=== PATIENT | female | born 1955 | race Caucasian/White ===

== ENCOUNTER 2018-01-07 13:05 | Outpatient (CLI) | payer BC ==
--- NOTE | 2018-01-07 16:48 | PET ---
PET CT FROM SKULL BASE THROUGH MID THIGHS: INDICATION: History of breast cancer. COMPARISON: Report from a PET CT performed 07/25/06. TECHNIQUE: Multiple PET images were obtained from the skull base through the mid thighs after IV administration of 10.5 mCi F18-FDG IV. CT images were obtained for attenuation correction purposes only. FINDINGS: Biodistribution: The biodistribution appears successful. Head/Neck: There is a 1.5 cm nodule seen posterior to the inferior pole of the right thyroid gland with a peak S UV uptake of 2.74 and mean uptake of 3.51. No additional hypermetabolic lymphadenopathy is evident. Chest: There is prominent pleural thickening involving the left hemithorax with foci of the pleural thickeni ng having hypermetabolic uptake. One is seen adjacent to the left prevascular space measuring 4.2 x 9 .7 cm with a peak SUV uptake of 3.61 and a mean uptake of 2.65. An additional nodular area of focal p leural thickening adjacent to the descending thoracic aorta measuring up to 2.5 cm with a peak SUV up take of 5.26 and mean uptake of 4.69. Diffusely mildly hypermetabolic activity is seen involving the pleural thickening involving the posterior costophrenic angle. There is a hypermetabolic 9.0 mm right retrocrural lymph node with a peak SUV uptake of 2.6 and a justine n uptake of 2.36. Abdomen/Pelvis: No hypermetabolic lymphadenopathy or mass is seen within the abdomen or pelvis. Skin/Osseous Structures: There is a suspected healing pathologic fracture involving the lateral left 10th rib with peak SUV up take of 5.77 and mean uptake of 5.77. An additional sclerotic foci is seen within the lateral left 9t h rib with no associated hypermetabolic activity. Punctate sclerotic foci are seen within L3. There i s an additional sclerotic lesion within the right aspect of T10. IMPRESSION: Abnormal PET CT: 1. There is abnormal hypermetabolic pleural thickening involving the left hemithorax suspicious for pleural based metastatic disease. 2. There is a hypermetabolic right retrocrural lymph node suspicious for malignant lymphadenopathy. 3. There is a hypermetabolic healing fracture involving the lateral left 10th rib suspicious for pat hologic fracture involving a metastatic lesion to the left 10th rib. There is additional sclerotic fo ci within the lateral left 9th rib, as well as within the thoracic and lumbar vertebra without associ ated hypermetabolic activity; however, these are below PET resolution threshold and remain suspicious for osteoblastic metastatic disease. 4. Mildly hypermetabolic nodule involving the posterior aspect of the inferior pole of the right thy roid gland is indeterminate. Recommend thyroid ultrasound for additional characterization. POS: [facility]
== END 2018-01-07 13:06 | disposition home or self-care (01) ==
LOC: PET 13:05
PROVIDERS: ATTEND Internal Medicine Hematology & Oncology
DX: C78.02 Secondary malignant neoplasm of left lung (principal); C50.412 Malignant neoplasm of upper-outer quadrant of left female breast; J92.9 Pleural plaque without asbestos; S22.32XD Fracture of one rib, left side, subsequent encounter for fracture with routine healing; E04.1 Nontoxic single thyroid nodule
CPT/HCPCS: 78815; A9552

== ENCOUNTER 2018-04-22 11:51 | Outpatient (CLI) | payer MEDICARE ==
--- NOTE | 2018-04-22 15:23 | PET ---
NUCLEAR MEDICINE FDG PET CT: (Positron Emission Tomography) DATE: 04/22/2018. HISTORY: A 63-year-old female with breast cancer and lung metastases. [id number] and C78.02. Restaging. COMPARISON: PET scan of 01/07/2018. TECHNIQUE: IV injection F-18 Fluorodeoxyglucose (FDG) dose: 12.1 mCi. PET and attenuation-correction CT performed from skull base to proximal thighs. FINDINGS: SUV (standard uptake value) numbers given are maximum SUV's, and QCLR is used: The solid nodule abutting the right side of the tracheoesophageal groove, and abutting the posterior aspect of the right lobe of the thyroid gland, has not changed in size. SUV 3.0 (previous 3.5). The previous mass at the left edge of the prevascular space of the mediastinum had a transverse dimensio n of 4.2 cm. It had a long tail extending anteriorly, giving the AP dimension 9.7 cm. However, that apparent tail does not appear to be hypermetabolic. When that anterior tail is excluded, the previo us dimensions are 9.7 x 1.7 cm. The current dimensions for this mass are 1.5 x 3 cm. The uptake has significantly increased from previous SUV of 3.6, to current SUV of 7.6. There is a new finding of an osteolytic lesion involving the head of the left 5th rib, with soft tiss ue component extending into the adjacent posteromedial pleural surface, abutting the posterior edge o f the upper descending thoracic aorta. SUV 7.7. There is a posterior pleural-based tiny soft tissue density nodule abutting the posterior aspect of t he apical segment of the left upper lobe, abutting the anterior surface of the posterior aspect of th e left third rib, which was previously approximately 0.8 cm in size. It is stable. Its SUV Is only 1.9. Several rib levels inferior and slightly posterolateral pleural surface nodule was previously approxi mately 1 cm, and is currently 1.3 cm, with current SUV of 3.1 (previously SUV of 1.9). This is consi stent with another pleural metastasis. Much more inferiorly and medially, there was a pleural-based mass at the left lower lobe level, broad ly abutting the posterior aspect of the descending thoracic aorta, which previously measured approxim ately 3 x 2 cm with SUV of 6.5. It currently measures approximately 4.5 x 3 cm, and has SUV of 6.2. This is probably another pleural metastasis. There is now a greater degree of left pleural thickening involving the left base, with small loculate d components of pleural effusion. At the medial posterior base, this region of thickened pleura has SUV of 5.1. It was previously 4.0. There is a focal sclerotic lesion involving the lateral aspect of the left 9th rib without increased uptake. At the lateral aspect of the left 10th rib, there is a metastatic lesion with SUV of 8.9 (previous 7. 0), now with a greater degree of surrounding soft tissue mass component surrounding it that measures approximately 3.5 x 4.5 cm. No evidence of metastatic disease involving the abdominal cavity, pelvic cavity, or neck. Absent left breast. New tiny focus of increased uptake within the bone marrow of left intertrochanteric proximal femur wi th SUV of 10.3 (very difficult to visualize on CT), representing osseous metastatic lesion. New osseous metastatic focus at right iliac wing with SUV of 6.4, difficult to appreciate on CT. New 1.5 x 1 cm osteolytic lesion (with lateral cortical breakthrough) at right ilium just lateral to the upper aspect of the right SI joint with SUV of 15.2. New left posterolateral left 11th rib osseous metastasis with SUV 5.9. New compression fracture of T11 with SUV of 7.5. Uncertain whether this is pathologic fracture or os teoporotic fracture. Pathologic fracture due to metastasis is slightly favored. Left T9 posterior element (transverse process) osteolytic metastasis with SUV of 9.3. New right T9 vertebral body osteolytic metastasis with SUV of 9.3. IMPRESSION: 1. Interval worsening of left hemithoracic pleural metastatic lesions. 2. Interval development of multiple new skeletal metastases. MAXIME Dietrich POS: ZEINA
== END 2018-04-22 11:52 | disposition home or self-care (01) ==
LOC: PET 11:51
PROVIDERS: ATTEND Internal Medicine Hematology & Oncology
DX: C50.919 Malignant neoplasm of unspecified site of unspecified female breast (principal); C78.00 Secondary malignant neoplasm of unspecified lung; C78.2 Secondary malignant neoplasm of pleura; C79.51 Secondary malignant neoplasm of bone
CPT/HCPCS: 78815; A9552

== ENCOUNTER 2018-04-28 09:40 | Outpatient (CLI) | payer MEDICARE ==
[2018-04-28 10:26] LABS: Estimated GFR-MDRD - POC Greater than 90
[2018-04-28] MEDS ORDERED: Gadobenate Dimeglumine 529 MG/1 ML (20ML VIAL) ONE (11:25)
--- NOTE | 2018-04-28 13:20 | MRI ---
PRE AND POST CONTRAST ENHANCED MRI IMAGES OF THE THORACIC SPINE: History: Neoplasm of breast secondary malignancy to left lung. Technique: Multiplanar, multisequence pre and post contrast enhanced MRI images were obtained of the thoracic spine. FINDINGS: Images demonstrate areas of signal abnormality seen in the left superior endplate of the T5 vertebral body. There is more extensive signal abnormality seen in the T9 and T11 vertebral bodies. There is a lso a small central upper and right sided T12 vertebral lesion. In addition, there is a right posteri or T8 vertebral body lesion. There is also associated T9 and T11 compression fractures. Areas of sign al abnormality seen in the T10 vertebral body. There is also a subtle area of signal abnormality seen in the left posterior and inferior aspects of the L1 vertebra. These findings suggest multiple verte bral body lesions compatible with metastatic disease of much of the thoracic spine and L1 vertebral l evels. There is also extensive posterior element abnormalities seen in the thoracic spine involving the left T4 and T5 neural foramen and left T5 pedicle and transverse process. In addition, signal abnormaliti es are also seen in the posterior elements bilaterally of the T9 posterior elements, especially invol ving the left T9 lamina and transverse process extending into the left T9 epidural space. IMPRESSION: Extensive thoracic metastases as described above, involving T4-5 neural foramen, T5 vertebral level, as well as lower thoracic metastatic disease. POS: [facility]
== END 2018-04-28 09:41 | disposition home or self-care (01) ==
LOC: BICMRI 09:40
PROVIDERS: ATTEND Internal Medicine Hematology & Oncology
DX: C79.51 Secondary malignant neoplasm of bone (principal); C50.919 Malignant neoplasm of unspecified site of unspecified female breast
CPT/HCPCS: 72157; 82565; A9579

== ENCOUNTER 2018-07-24 14:15 | Outpatient (CLI) | payer MEDICARE ==
--- NOTE | 2018-07-24 16:11 | MRI ---
MRI THORACIC SPINE WITH AND WITHOUT CONTRAST: 07/24/2018 HISTORY: 63-year-old female with breast cancer metastatic to the bones, including spine, presents with worseni ng of mid and lower back pain. COMPARISON: 04/28/2018 FINDINGS: There is greater number of metastatic enhancing osseous lesions at multiple levels now, and interval growth of some of the lesions. The largest lesions are present at T2, T5, T9, T10, and T11 vertebral bodies. There are also metastatic osseous lesions in the T4 left posterior body and left pedicle, T8 posterior body, T12 right superior body, and spinous processes of T3, T9, T10, and T12. The previousl y demonstrated left paraspinal tumor mass component at T4-5, with involvement of the left T5 transver se process and left T5 rib has become larger. Metastatic pleural based nodules are present within the left thoracic cavity. Mild chronic loss of height of the T9 and T11 vertebral bodies have not signif icantly changed. At T9, there is moderately severe central spinal canal stenosis due to expansile oss eous metastatic involvement of the left pedicle, left lamina, and posterior aspect of vertebral body, all encroaching upon the spinal canal, distorting, and mild-moderately compressing the spinal cord t o a similar degree as previously or perhaps minimally worse. No cord edema. No abnormal intramedullar y enhancement of the cord. No syrinx. No high grade central spinal canal stenosis at any other level. No new compression fracture. IMPRESSION: 1. Significant interval progression of osseous metastatic lesions throughout the thoracic spine, now involving every level of various degrees of severity. 2. Nonacute mild compression deformities of T9 and especially T11, are stable. 3. Moderately severe central spinal canal stenosis with mild chronic cord compression due to met astatic osseous expansion, at T9, is either stable or minimally worse. 4. No other levels of high grade central spinal canal stenosis or cord impingement in the thorac ic spine. POS: [facility]
--- NOTE | 2018-07-24 16:30 | MRI ---
MRI LUMBAR SPINE WITH AND WITHOUT CONTRAST: DATE: 07/24/18 HISTORY: 63-year-old female with breast cancer metastatic to bone. Low back pain. COMPARISON: None. TECHNIQUE: Multiple sequences obtained in axial and sagittal planes, pre and post IV injection of gadolinium-bas ed contrast agent: 16 mL of Multihance. FINDINGS: There are five lumbar type vertebrae. Vertebral body heights are maintained. No high grade central sp inal canal stenosis or high grade neural foraminal stenosis at any level. No abnormal enhancement of lower spinal cord or abnormal intradural enhancement. Cauda equina is arranged in a symmetrical, norm al distribution throughout the thecal sac. There are mild degenerative facet changes at several level s. Mild discogenic degenerative changes at several levels. There are multiple osseous metastatic lesi on throughout the vertebral bodies and posterior elements, at every visualized level. The largest les ion is at L1. No loss of height. No bony retropulsion. No tumor mass in the neural foramina. Metastat ic lesions are also present in the sacrum. There is a nonacute compression fracture of T11, which is described more in the report for the thoracic spine MRI. IMPRESSION: 1. Diffuse osseous skeletal metastatic lesion throughout every lumbar vertebral level. 2. No pathologic compression fracture in the lumbar spine, no nerve root compression, and no hig h grade central or neural foraminal stenosis. MAXIME Dietrich POS: [facility]
== END 2018-07-24 14:16 | disposition home or self-care (01) ==
LOC: MRI 14:15
PROVIDERS: ATTEND Radiology Radiation Oncology
DX: C79.51 Secondary malignant neoplasm of bone (principal); C50.919 Malignant neoplasm of unspecified site of unspecified female breast; M54.5 Low back pain; M48.04 Spinal stenosis, thoracic region
CPT/HCPCS: 72157; 72158

== ENCOUNTER 2018-08-17 15:17 | Inpatient (IN) | payer MEDICARE ==
[~2018-08-17 15:17] MED LIST: Dexamethasone 20 MG/5 ML VIAL ONE; Glycopyrrolate 0.2 MG/ML 5 ML SYRINGE ONE; Lidocaine 1% PF 5 ML VIAL ONE; Ondansetron PF 4 MG/2 ML Vial ONE; PROPOFOL 200 MG/20 ML VIAL ONE; Rocuronium Bromide 10 MG/ML (10ML VIAL) ONE; ePHEDrine 50 MG/ML VIAL ONE
[2018-08-17] MEDS ORDERED: Morphine 4 MG/ML VIAL ONE (16:34)
[2018-08-17 16:42] LABS: #Lymphocytes 0.6 thou/uL (1.20-3.40); #Monocytes 0.1 thou/uL (0.11-0.59); #Neutrophils 2.6 thou/uL (1.40-6.50); %Basophils 0.4 % (0.0-1.0); %Eosinophils 0.8 % (0.0-10.0); %Lymphocytes 18.1 % (21.0-51.0); %Monocytes 2.8 % (0.0-10.0); %Neutrophils 77.8 % (42.0-75.0); Hemoglobin 11.9 g/dL (12.0-16.0); Mean Corpuscular HGB CONC 33.8 g/dL (32.0-36.0); Mean Corpuscular Hemoglobin 35.5 pg (27.0-31.0); Mean Platelet Volume 7.1 fL (7.4-10.4); Platelet Count 283 thou/uL (130-400); RBC Distribution Width 16.7 % (11.5-14.5); Red Blood Cell (RBC) Count 3.35 mill/uL (4.20-5.40); White Blood Cell (WBC) Count 3.3 thou/uL (4.8-10.8)
[2018-08-17 17:04] LABS: ALT (SGPT) 11 U/L (8-55); AST (SGOT) 24 U/L (5-34); Albumin 3.8 g/dL (3.4-4.8); Alkaline Phosphatase 212 U/L (40-150); Anion Gap 10 mmol/L (10-20); BUN (Urea Nitrogen) 11 mg/dL (9.8-20.1); Bilirubin, Total 0.4 mg/dL (0.2-1.2); Calc. Creatinine Clearance 0 mL/min (70-130); Calcium 8.5 mg/dL (7.8-10.44); Carbon Dioxide 28 mmol/L (23-31); Chloride 104 mmol/L (98-107); Estimated GFR-MDRD 79; Globulin 2.4 g/dL (2.4-3.5); Glucose 94 mg/dL (80-115); Protein, Total 6.2 g/dL (6.0-8.3); Sodium 138 mmol/L (136-145)
[2018-08-17 17:06] LABS: Anisocytosis SLIGHT = 6-15 cells (100X) (0-5/hpf); MDiff Complete? YES; Macrocytosis SLIGHT = 6-15 cells (100X) (0-5/hpf); Platelet Morphology Comment Appears Adequate; Polychromasia SLIGHT = 2-3 cells (100X) (0-2/hpf)
--- NOTE | 2018-08-17 17:21 | ULT ---
Left lower extremity venous Doppler ultrasound: 08/17/2018 COMPARISON: None HISTORY: Pain and swelling, assess for DVT TECHNIQUE: Multiplanar grayscale sonographic imaging of the venous structures left lower extremity ob tained with color flow and spectral analysis FINDINGS: Left common femoral vein, greater saphenous vein, profunda femoral vein, femoral vein, popl iteal vein, and posterior tibial vein are patent. No evidence for DVT. IMPRESSION: No evidence for deep venous thrombosis of the left lower extremity.
--- NOTE | 2018-08-17 17:45 | RAD ---
Frontal and lateral imaging of left femur: 08/17/2018 COMPARISON: None HISTORY: Pain FINDINGS: A nondisplaced fracture involving the midportion of the left femoral neck is noted. No jonny tional fracture is seen. IMPRESSION: Nondisplaced left femoral neck fracture.
--- NOTE | 2018-08-17 17:45 | RAD ---
2 views left hip: 08/17/2018 COMPARISON: 08/14/2018 HISTORY: Left hip pain FINDINGS: There is a nondisplaced fracture involving the midportion of the left femoral neck. No evid ence for dislocation is seen. IMPRESSION: Nondisplaced left femoral neck fracture.
--- NOTE | 2018-08-17 17:46 | RAD ---
Frontal radiograph pelvis: 08/17/2018 COMPARISON: None HISTORY: Left hip pain FINDINGS: Nondisplaced fracture involving the midportion of the left femoral neck is noted. The pelvi c ring is intact. No widening of the sacroiliac joints or pubic symphysis. Neither hip appears dislocated. IMPRESSION: Nondisplaced fracture involving the midportion of the left femoral neck.
[2018-08-17 18:14] LABS: PTT 24.2 SEC (22.9-36.1); Prothrombin Time 13.3 SEC (12.0-14.7)
[2018-08-17] MEDS ORDERED: Fleet Enema 133 ML BOT PR PRN (19:02)
[2018-08-17] MEDS ORDERED: Bisacodyl 10 MG SUPP PR PRN (19:02)
[2018-08-17] MEDS ORDERED: Ondansetron PF 4 MG/2 ML Vial IVP PRN (19:02)
[2018-08-17] MEDS ORDERED: Fentanyl 100 MCG/2 ML VIAL SLOW IVP PRN (19:02)
[2018-08-17] MEDS ORDERED: traMADol HCl 50 MG TAB PO PRN ×2 (19:02)
[2018-08-17] MEDS ORDERED: Milk Of Magnesia 30 ML UDCUP PO PRN (19:02)
[2018-08-17] MEDS ORDERED: oxyCODONE/Acetaminophen 5 mg/325 mg Tablet PO PRN (19:10)
[2018-08-17] MEDS ORDERED: CEFAZOLIN 2 GM in Premix Bag 1 BAG IVPB SCH (19:15)
[2018-08-17] MEDS ORDERED: Zolpidem Tartrate 5 MG TAB PO PRN (19:16)
--- NOTE | 2018-08-17 19:30 | RAD ---
Portable frontal chest radiograph: 08/17/2018 COMPARISON: None HISTORY: Hip fracture FINDINGS: Nonspecific increased density is noted in the medial left lung base. There is also increase d soft tissue density along the lateral aspect of the mid left lung zone and in the left costophrenic angle. This may be on the basis of an inflammatory/infectious process or may be on the b asis of malignancy. Of note, the patient does have a history of breast cancer with pulmonary metastatic disease. IMPRESSION: Increased density within the left hemithorax, likely related to the patient's history of metastatic breast cancer. No evidence for pulmonary edema.
[2018-08-17 19:48] LABS: #Lymphocytes 0.6 thou/uL (1.20-3.40); #Monocytes 0.2 thou/uL (0.11-0.59); #Neutrophils 2.2 thou/uL (1.40-6.50); %Basophils 1.1 % (0.0-1.0); %Lymphocytes 19.8 % (21.0-51.0); %Monocytes 5.4 % (0.0-10.0); %Neutrophils 72.7 % (42.0-75.0); Hemoglobin 11.6 g/dL (12.0-16.0); Mean Corpuscular HGB CONC 34.2 g/dL (32.0-36.0); Mean Corpuscular Hemoglobin 35.7 pg (27.0-31.0); Mean Platelet Volume 7.3 fL (7.4-10.4); Platelet Count 296 thou/uL (130-400); RBC Distribution Width 16.7 % (11.5-14.5); Red Blood Cell (RBC) Count 3.25 mill/uL (4.20-5.40); White Blood Cell (WBC) Count 3.1 thou/uL (4.8-10.8)
[2018-08-17 19:51] LABS: PTT 23.8 SEC (22.9-36.1); Prothrombin Time 13.5 SEC (12.0-14.7)
[2018-08-17 20:07] LABS: ALT (SGPT) 8 U/L (8-55); AST (SGOT) 21 U/L (5-34); Albumin 3.9 g/dL (3.4-4.8); Alkaline Phosphatase 216 U/L (40-150); Anion Gap 12 mmol/L (10-20); BUN (Urea Nitrogen) 10 mg/dL (9.8-20.1); Bilirubin, Total 0.5 mg/dL (0.2-1.2); Calc. Creatinine Clearance 0 mL/min (70-130); Calcium 8.6 mg/dL (7.8-10.44); Carbon Dioxide 28 mmol/L (23-31); Chloride 104 mmol/L (98-107); Estimated GFR-MDRD Greater than 90; Globulin 2.3 g/dL (2.4-3.5); Glucose 91 mg/dL (80-115); Potassium 3.8 mmol/L (3.5-5.1); Protein, Total 6.2 g/dL (6.0-8.3); Sodium 140 mmol/L (136-145)
[2018-08-17] MEDS: Sodium Chloride 0.9% 1,000 ML IV SCH (21:39)
[2018-08-17] MEDS: Atorvastatin Calcium 40 MG TAB PO SCH (22:18)
[2018-08-17] MEDS: Gabapentin 100 MG CAP PO SCH (22:19)
[2018-08-17] MEDS: Famotidine 20 MG TAB PO SCH (22:19)
[2018-08-17 22:33] VITALS: BMI 31.8
[2018-08-17] MEDS: [UNRECOGNIZED DRUG - OTHER] PO SCH (22:36)
[2018-08-17] MEDS: oxyCODONE/Acetaminophen 5 mg/325 mg Tablet PO PRN (22:36)
--- NOTE | 2018-08-17 23:22 | HP ---
REFERRING PHYSICIAN: Dr. Cabral TRAUMA SURGEON: Dr. Ku. CONSULTING PHYSICIAN: Dr. Lovett. HISTORY OF PRESENT ILLNESS: The patient is a 63-year-old female with a history of metastatic breast cancer with metastasis to the spine. She reported no significant trauma; however, she twisted today and sat on her commode and started having significant left-sided hip pain. She came to the emergency department for evaluation. X-ray imaging demonstrated that she had a left femoral neck fracture. She denied nausea, vomiting, diarrhea, or recent illness. Also, denied numbness or tingling in her left lower extremity. She did have swelling below the area of the injury. She is not taking any anticoagulation. She did not report any fall, did not strike her head or lose consciousness. PAST MEDICAL HISTORY: Stage IV metastatic breast cancer with metastasis to the T-spine, hypertension, hyperlipidemia. PAST SURGICAL HISTORY: Left-sided mastectomy and tubal ligation. SOCIAL HISTORY: She denies tobacco, drug, or alcohol use. She works and drives. She enjoys taking care of her grandchildren. MEDICATIONS: 1. Lisinopril/hydrochlorothiazide 20/25 mg one tablet once a day. 2. Flonase 2 sprays each nostril daily. 3. Ambien 5 mg p.r.n. for insomnia. 4. Robaxin 750 mg t.i.d. p.r.n. 5. Etodolac 500 mg b.i.d. 6. Ibrance 125 mg at night. 7. Gabapentin 100 mg t.i.d. 8. Percocet 10/325 mg q.6 hours p.r.n. for pain. 9. Fentanyl patch 25 mcg transdermal every 3 days for pain. 10. Metoprolol 25 mg once a day. 11. Lipitor 80 mg once a day. 12. Vitamin D one each week. 13. Aspirin 81 mg daily. ALLERGIES: NO KNOWN DRUG ALLERGIES. PHYSICAL EXAMINATION: VITAL SIGNS: Temperature 98.5, pulse 68, respirations 18, oxygen saturation 98 % on room air, blood pressure 128/68. PRIMARY SURVEY: 1. Airway intact. 2. Adequate breath sounds bilaterally. 3. 2+ pulses palpable in the bilateral radials, femorals, and DPs. 4. GCS is 15. Gross motor and sensation intact. 5. No lacerations bruises or external bleeding. SECONDARY SURVEY: 1. Normocephalic. No gross palpable skull deformities or tenderness. 2. EYES: Equal, 3 to 2 equal, round, reactive bilaterally. 3. ENT: No hemotympanum. No epistaxis. No septal hematoma. Midface stable to manipulation. No blood in the oropharynx. Dentition is intact. No anterior neck injury/crepitus/tenderness. 4. C-SPINE: No step-offs or deformities. Nontender. C-collar not in place. 5. CHEST: Nontender. No crepitus. No abrasions or ecchymosis noted. Left- sided mastectomy scar. Equal chest movement. 6. ABDOMEN: Soft, nontender, nondistended. 7. PELVIS: Stable with left-sided tenderness. No abrasions or ecchymosis. 8. RECTAL: Deferred. 9. GENITOURINARY: Deferred. 10. EXTREMITIES: Swelling to the left lower extremity. No abrasions or ecchymosis noted. 2+ pulses in the bilateral radials, femorals, and DPs bilaterally. 11. BACK/SPINE: No step-offs, deformities, or tenderness to palpation of the thoracic or lumbar spine. No abrasions or ecchymosis noted. 12. NEUROLOGIC: 5/5 strength in the bilateral neuroscientist/plantar flexion/ dorsiflexion. Gross normal sensation x4 extremities. LABORATORY FINDINGS: White count 3.3, hemoglobin 11.9, hematocrit 35.2, platelets 283. INR 1.0. Sodium 138, potassium 4.0, chloride 104, carbon dioxide 28, BUN 11, creatinine 0.74, glucose 94. Troponin 0.010. Total bilirubin 0.4, AST 24, ALT 11. DIAGNOSTIC FINDINGS: X-ray of the left femur demonstrates a nondisplaced left femoral neck fracture. X-ray of the left hip demonstrates a nondisplaced left femoral neck fracture. X-ray of the pelvis demonstrates a nondisplaced fracture involving the midportion of the left femoral neck. Ultrasound of the left lower extremity demonstrates no evidence of deep venous thrombosis of the left lower extremity. ASSESSMENT: 1. Left femoral neck fracture, not due to significant trauma. 2. History of stage IV metastatic breast cancer with metastasis to the T-spine, hypertension, and hyperlipidemia. 3. Acute traumatic pain due to left femoral neck fracture. PLAN: The patient will be admitted to the surgical floor. She will have a diet tonight, but will be n.p.o. after midnight. She will receive normal saline as well. She is to have bedrest for now. The patient will be started on her home fentanyl patch of 25 mcg as well as home Ambien, metoprolol, Lipitor. We will provide additional oral and IV pain medications as the patient is not opiate naive and may require more pain medication than other patients. She will go to the OR tomorrow with Dr. Lovett for a total hip replacement on the left side. Postoperatively, she will work with Physical and Occupational Therapy and will likely need discharge to a rehab facility. The patient will be discussed with Dr. Ku after this dictation. Job ID: [id number] [facility]
[2018-08-18] MEDS: oxyCODONE/Acetaminophen 5 mg/325 mg Tablet PO PRN (03:12)
[2018-08-18 05:37] LABS: Magnesium 2.1 mg/dL (1.6-2.6); Phosphorus 3.7 mg/dL (2.3-4.7)
[2018-08-18] MEDS ORDERED: Vancomycin HCl 1 GM in Premix Bag 1 BAG IVPB SCH (07:00)
[2018-08-18] MEDS ORDERED: Tranexamic Acid 1,000 MG in Sodium Chloride 0.9% 250 ML 250 ML IVPB SCH (07:00)
--- NOTE | 2018-08-18 07:36 | HP ---
DIAGNOSIS: Left femoral neck fracture. HISTORY OF PRESENT ILLNESS: She is a very pleasant woman who has history of metastatic breast cancer from 2004. Has had left hip pain for several days. Dr. Wren suspected a hip pathology, took x-rays, which were actually negative for a fracture. She presents today with a displaced femoral neck fracture. PAST MEDICAL HISTORY: Positive for breast cancer and hypertension. CURRENT MEDICATIONS: Include aspirin and some type of chemotherapeutic agent. She does not take any type of blood thinner. REVIEW OF SYSTEMS: She works at this time. She is a community ambulator, very active with her grandkids and great grandkids and does not smoke or drink. PHYSICAL EXAMINATION: GENERAL: Shows a pleasant woman, who is in no distress. EXTREMITIES: She has severe pain with any manipulation of the left hip. She has intact pulses, intact motor sensation distally. LABORATORY DATA: Radiographs show displaced femoral neck fracture. PLAN: Plan is for total hip arthroplasty. She understands risks, infection, stiffness, , blood clots, transfusion, , dislocation. She elected to proceed with surgery. Job ID: [id number]
[2018-08-18] MEDS ORDERED: Fluticasone Propionate Nasal Spray 16 gm Bottle NASAL PRN (07:41)
[2018-08-18] MEDS ORDERED: Potassium Phosphate 15 MMOL in Sodium Chloride 0.9% 250 ML 250 ML IVPB SCH (07:45)
[2018-08-18] MEDS ORDERED: Prevnar 13-Val Conj/PF 0.5 ML SYRINGE IM ONE (09:00)
[2018-08-18] MEDS ORDERED: Tranexamic Acid 1,000 MG/10 ML VIAL ONE (11:14)
[2018-08-18] MEDS ORDERED: Midazolam HCl 2 mg/2 ml Vial ONE (11:42)
[2018-08-18] MEDS ORDERED: Fentanyl 100 MCG/2 ML VIAL ONE ×3 (11:42→14:22)
[2018-08-18] MEDS ORDERED: Hydrocerin (Eucerin) Cream 120 gm Jar TOP PRN (12:15)
[2018-08-18] MEDS ORDERED: Promethazine HCl 25 MG/ML VIAL IM PRN ×2 (12:15→14:22)
[2018-08-18] MEDS ORDERED: Naloxone HCl 0.4 mg/ml Vial IV PRN (12:15)
[2018-08-18] MEDS ORDERED: diphenhydrAMINE 50 MG/ML VIAL IVP PRN (12:15)
[2018-08-18] MEDS ORDERED: diphenhydrAMINE 50 MG/ML VIAL IM PRN (12:15)
[2018-08-18] MEDS ORDERED: Naloxone HCl 0.4 mg/ml Vial IVP PRN (12:15)
[2018-08-18] MEDS ORDERED: diphenhydrAMINE 25 MG CAP PO PRN (12:15)
[2018-08-18] MEDS ORDERED: Bupivacaine 0.25% 10 ML VIAL EPIDURAL PRN (12:15)
[2018-08-18] MEDS ORDERED: HYDROcodone/Acetaminophen 5/325 mg Tablet PO PRN (12:15)
[2018-08-18] MEDS ORDERED: Ondansetron PF 4 MG/2 ML Vial IVP PRN (12:15)
[2018-08-18] MEDS ORDERED: traMADol HCl 50 MG TAB PO PRN ×2 (12:15)
[2018-08-18] MEDS ORDERED: Promethazine HCl 25 MG SUPP PR PRN (12:15)
[2018-08-18] MEDS ORDERED: Acetaminophen 500 MG TAB PO PRN (12:16)
[2018-08-18] MEDS ORDERED: Ondansetron HCl/PF 4 MG/2 ML Vial IVP PRN (14:22)
[2018-08-18] MEDS ORDERED: Promethazine HCl 25 MG/ML VIAL SLOW IVP PRN (14:22)
[2018-08-18] MEDS ORDERED: Lidocaine 2% 10 ML INJ ONE (14:50)
[2018-08-18] MEDS: Gabapentin 100 MG CAP PO SCH ×2 (16:45→20:26)
[2018-08-18] MEDS: Famotidine 20 MG TAB PO SCH ×2 (16:45→20:26)
[2018-08-18] MEDS: Sodium Chloride 0.9% 1,000 ML IV SCH ×2 (16:46→22:37)
[2018-08-18] MEDS: HYDROcodone/Acetaminophen 5/325 mg Tablet PO PRN ×2 (17:34→22:28)
--- NOTE | 2018-08-18 18:15 | RAD ---
XR Hip Lt 2-3 View History: [Hip replacement] Comparison: Radiograph prior day Findings: Satisfactory postoperative appearance left hip arthroplasty. Expected postoperative gas and edema. Impression: Satisfactory postoperative appearance.
[2018-08-18 19:07] LABS: Bilirubin Negative (Negative); Blood, Urine Negative (Negative); Clarity CLEAR (Clear); Glucose, Urine (Dipstick) Negative (Negative); Leukocyte Trace (Negative); Nitrite Negative (Negative); Protein, Urine (Dipstick) Negative (Neg-Trace); Specific Gravity, Urine 1.008 (1.002-1.036); pH, Urine 6.5 (5.0-9.0)
[2018-08-18 19:09] LABS: Bacteria/HPF None Seen HPF (None Seen); Hyaline Casts/LPF 0-3 HYALINE CAST LPF (0-3 Hyaline); RBC/HPF 0-3 HPF (0-3); Squamous Epithelial None Seen HPF (0-3); WBC/HPF 0-3 HPF (0-3)
[2018-08-18] MEDS: CEFAZOLIN 1 GM in Sodium Chloride 0.9% 100 ML IVPB SCH (20:26)
[2018-08-18] MEDS: [UNRECOGNIZED DRUG - OTHER] PO SCH (20:27)
[2018-08-18] MEDS: Atorvastatin Calcium 40 MG TAB PO SCH (20:32)
--- NOTE | 2018-08-18 21:03 | OP ---
DATE OF PROCEDURE: 08/18/2018 This is Dean Saleem PA-C dictating a report for Jason Lovett MD. PREOPERATIVE DIAGNOSIS: Left hip nondisplaced suspected pathological femoral neck. POSTOPERATIVE DIAGNOSIS: Left hip nondisplaced suspected pathological femoral neck. OPERATIVE PROCEDURE: Press-fit total hip arthroplasty for fracture treatment. SINGE WINDER: Dean Saleem PA-C ANESTHESIA: General via endotracheal tube augmented with indwelling epidural. COMPONENTS USED: [employer] Trident PSL press-fit 46 mm cluster acetabular shell with a size 3.5 Accolade press-fit hip stem. A 0-degree polyethylene fixed bearing insert and a 36 mm plus 5 neck length, 36 mm femoral head. ESTIMATED BLOOD LOSS: 200. FINDINGS: Nondisplaced femoral neck fracture, mid cervical in nature, suspect pathological origin. DRAINS: None. SPECIMENS: Three sent for cytology to include femoral head, neck, and intramedullary washings. COMPLICATIONS: None. COUNTS: Correct. FLUIDS: 1000 mL crystalloid. OUTPUT: 500 clear yellow urine. INDICATION FOR SURGERY: Nhi is a 63-year-old white female, who had a spontaneous left hip fracture. She has had progressive left hip pain for the last few days. Preliminary radiographs were obtained which is negative for fracture, but she presented to the emergency room with discomfort and pain, and was admitted for a slightly displaced femoral neck fracture. Her past medical history is significant for breast cancer and she has been on chemotherapy for the last 2 years. PROCEDURE IN DETAIL: After informed consent was obtained in the preoperative holding area, the patient was taken to the operative suite where general anesthesia was induced. The patient was then positioned in the lateral decubitus position. The hip was then prepped and draped in usual sterile fashion. The patient received preoperative antibiotics. Prior to incision, time-out was called and all members of the surgical team agreed upon site, surgeon, and patient. After this, a longitudinal incision was made directly over the trochanter, noted by palpation extending 2 fingerbreadths above and below the trochanter. The deeper subcutaneous layer was undermined with Bovie electrocautery. The iliotibial band was encountered and incised sharply and the plane below this was developed bluntly. A Charnley retractor was placed to hold this opened. The lateral aspect of the trochanter and the abductor muscles were encountered and then reflected anteriorly off the trochanter using Bovie electrocautery. Once this was completed, the anterior capsule was then encountered and identified and copious capsulotomy was carried out, exposing the femoral neck and head. Dislocation maneuver was then performed and an in situ provisional neck cut was then made using the oscillating saw. Attention was then turned to acetabular preparation. Sequential reaming was carried out up to the appropriate diameter and a trial was then malleted into place with good firm resistance and no pullout. The permanent acetabular shell was then malleted squarely into place, as was the appropriate liner. Once completed, the wound was copiously irrigated and attention was then turned to femoral preparation. Flexion and external rotation were performed of the exposed thigh and femoral elevators were then placed at the proximal aspect of the wound. Canal finder was used to establish the length of the canal and sequential reaming was carried out, followed by broaching. Once the appropriate stability was established with the trial broaches with flexion, extension and rotational stability, we did trial with neutral and 2 mm offset incremental necks. Once the appropriate size was decided upon, with good stability noted with flexion, extension, internal and external rotation and shuck being negative, we removed the femoral trial broach and malleted into place the permanent prosthesis with good firm fit, which was also stable to rotation. Again, the hip felt very stable to flexion, extension, internal and external rotation. Leg lengths appeared near anatomic clinically and we were quite happy with prosthesis placement. Copious irrigation was then carried out through the entirety of the wound. Primary closure of the abductors was accomplished with interrupted #2 Vicryl [id number] stitches and the IT band was then closed with interrupted #2 Vicryl, oversewn with a #2 running barbed Quill stitch. Subcutaneous fascia was closed with running barbed Quill stitch and a subcuticular Monocryl barbed Quill stitch was used for skin closure and augmented with skin cement. A sterile dressing was applied. The procedure was terminated without any complication. All counts were correct. The patient was awakened in the operative suite and taken to the recovery room in stable condition. Job ID: [id number]
[2018-08-18] MEDS: Zolpidem Tartrate 5 MG TAB PO PRN (22:29)
[2018-08-19] MEDS ORDERED: Vancomycin HCl 1 GM in Sodium Chloride 0.9% 250 ML 250 ML IVPB SCH (02:15)
[2018-08-19] MEDS: Fentanyl 5 mcg/Bup 0.075% Cadd 100 ML EPIDURAL SCH ×2 (04:46→21:40)
[2018-08-19] MEDS: CEFAZOLIN 1 GM in Sodium Chloride 0.9% 100 ML IVPB SCH ×2 (04:56→12:42)
[2018-08-19] MEDS: HYDROcodone/Acetaminophen 5/325 mg Tablet PO PRN ×3 (05:56→20:11)
[2018-08-19 05:58] LABS: #Lymphocytes 0.4 thou/uL (1.20-3.40); #Monocytes 0.1 thou/uL (0.11-0.59); #Neutrophils 2.5 thou/uL (1.40-6.50); %Basophils 0.2 % (0.0-1.0); %Eosinophils 0.3 % (0.0-10.0); %Lymphocytes 12.6 % (21.0-51.0); %Monocytes 3.6 % (0.0-10.0); %Neutrophils 83.3 % (42.0-75.0); Mean Corpuscular HGB CONC 33.7 g/dL (32.0-36.0); Mean Corpuscular Hemoglobin 35.8 pg (27.0-31.0); Mean Platelet Volume 7.6 fL (7.4-10.4); Platelet Count 212 thou/uL (130-400); RBC Distribution Width 16.8 % (11.5-14.5); Red Blood Cell (RBC) Count 2.79 mill/uL (4.20-5.40)
[2018-08-19 06:17] LABS: Anion Gap 10 mmol/L (10-20); BUN (Urea Nitrogen) 7 mg/dL (9.8-20.1); Calc. Creatinine Clearance 122 mL/min (70-130); Calcium 7.9 mg/dL (7.8-10.44); Carbon Dioxide 27 mmol/L (23-31); Chloride 103 mmol/L (98-107); Estimated GFR-MDRD Greater than 90; Glucose 109 mg/dL (80-115); Magnesium 2.2 mg/dL (1.6-2.6); Phosphorus 3.5 mg/dL (2.3-4.7); Potassium 4.1 mmol/L (3.5-5.1); Sodium 136 mmol/L (136-145)
--- NOTE | 2018-08-19 07:58 | PRG ---
DATE OF SERVICE: 08/18/2018 SUBJECTIVE: The patient was seen this morning lying in bed. She has been n.p.o. since midnight for the OR today with Dr. Lovett to address her left femoral neck fracture. She reported pain is well controlled. She denies nausea, vomiting, or diarrhea. OBJECTIVE: VITAL SIGNS: Temperature 98.6, pulse 66, respirations 16, oxygen saturation 95% on room air, blood pressure 132/76. GENERAL: Well-appearing middle-aged female, who is lying in bed with no signs of acute distress. PULMONARY: Equal chest rise and fall. Clear breath sounds bilaterally. No signs of acute respiratory distress. CARDIAC: Regular rate and rhythm. No murmurs, gallops, or rubs. GI: Abdomen is soft, nontender, nondistended. EXTREMITIES: 2+ pulses in all extremities. No significant swelling noted. Tenderness over the left pelvis and thigh with left upper extremity propped on pillows. NEURO: GCS is 15. Gross motor and sensation intact. Pupils equal, round, reactive to light. Alert and oriented x4. LABORATORY FINDINGS: White count 3.1, hemoglobin 11.6, hematocrit 34.0, platelets 296. INR 1.0. Sodium 140, potassium 3.8, chloride 104, carbon dioxide 28, BUN 10, creatinine 0.64, glucose 91, phosphorus 3.7, magnesium 2.1. DIAGNOSTIC FINDINGS: There are no new diagnostic findings to report. ASSESSMENT: 1. Left femoral neck fracture, not due to significant trauma. 2. History of stage IV metastatic breast cancer with metastasis to T-spine, hypertension, and hyperlipidemia. 3. Acute traumatic pain due to left femoral neck fracture. 4. Hypokalemia and hypophosphatemia. PLAN: The patient is to go to the OR today with Dr. Lovett and will receive a left total hip replacement. The patient will receive potassium and phosphorus IV replacement today. Postoperatively, she will be given a regular diet and IV fluids will be discontinued. On postop day 1, she will be started on DVT prophylaxis with aspirin 81 mg b.i.d. She is to work with Physical and Occupational Therapy postoperatively for evaluation of need for further rehab upon discharge. We will continue all her home medications as previously prescribed. We will continue to hold her home antihypertensive medications and restart them as clinically necessary. The patient was seen and examined by Dr. Lara and myself this morning during rounds. Job ID: [id number]
[2018-08-19] MEDS: Enoxaparin Sodium 40 MG/0.4 ML SYRINGE SC SCH (08:32)
[2018-08-19] MEDS: Gabapentin 100 MG CAP PO SCH ×3 (08:33→20:12)
[2018-08-19] MEDS: Senokot S 8.6-50 MG TAB PO SCH ×2 (08:33→20:12)
[2018-08-19] MEDS: Famotidine 20 MG TAB PO SCH ×2 (08:33→20:12)
[2018-08-19] MEDS ORDERED: Ergocalciferol 1.25 MG(50,000 UNITS) CAP PO SCH (09:00)
--- NOTE | 2018-08-19 13:53 | PRG ---
DATE OF SERVICE: 08/19/2018 SUBJECTIVE: The patient was seen sitting up, eating her breakfast this morning. The patient reports her pain is well controlled. The patient is unable to tolerate p.o. intake. The patient's urinary catheter is still in place. The patient has been able to ambulate to the bathroom with help from nursing. OBJECTIVE: VITAL SIGNS: Temperature 98.4, pulse 79, respirations 16, 94% oxygen on room air, blood pressure 99/65. GENERAL: Well-appearing, middle-aged female, lying in bed with no signs of acute distress. PULMONARY: Lung sounds are bilaterally clear to auscultation. No signs of acute respiratory distress. CARDIAC: Regular rate and rhythm. 1/6 systolic murmur. No rubs or gallops. GI: Abdomen is soft and nontender with positive bowel sounds. EXTREMITIES: 2+ pulses in upper and lower extremities. No significant swelling noted. NEURO: GCS is 15. Gross motor is intact. The patient does have some numbness in lower extremities secondary to her epidural. Pupils equal, round, and reactive to light and accommodating. Alert and oriented x3. LABORATORY FINDINGS: White blood cells 3.0, hemoglobin 10.0, hematocrit 29.6, platelets 212. Sodium 136, potassium 4.1, chloride 103, carbon dioxide 27, BUN 7, creatinine 0.59, phosphorus 3.5, magnesium 2.2. DIAGNOSTIC FINDINGS: Hip x-ray on 08/18/2018; impression, satisfactory postoperative appearance. ASSESSMENT: 1. Left femoral neck fracture, status post total hip arthroplasty. 2. History of stage IV metastatic breast cancer with metastasis to the T-spine, hypertension and hyperlipidemia. 3. Acute traumatic pain due to left femoral neck fracture, well controlled on medication. 4. Hypokalemia, resolved. 5. Hypophosphatemia, resolved. PLAN: DVT prophylaxis with Lovenox 40 mg daily. The patient will continue to work with Physical and Occupational Therapy to evaluate for need of further rehab. We will continue to hold the patient's home antihypertensives. The patient's pain is well controlled at this time. The patient was seen and examined by Dr. Lara during morning rounds. Discussed plan of care with the patient and family who are in agreement. Job ID: [id number] [facility]
[2018-08-19] MEDS: [UNRECOGNIZED DRUG - OTHER] PO SCH (20:10)
[2018-08-19] MEDS: Atorvastatin Calcium 40 MG TAB PO SCH (20:11)
[2018-08-19] MEDS ORDERED: Aspirin 81 mg Enteric Coated Tablet PO SCH (21:00)
[2018-08-19] MEDS: Zolpidem Tartrate 5 MG TAB PO PRN (21:49)
[2018-08-20] MEDS: HYDROcodone/Acetaminophen 5/325 mg Tablet PO PRN ×2 (05:44→20:39)
[2018-08-20] MEDS: Famotidine 20 MG TAB PO SCH ×2 (08:55→20:39)
[2018-08-20] MEDS: Gabapentin 100 MG CAP PO SCH ×3 (08:55→20:38)
[2018-08-20] MEDS: Senokot S 8.6-50 MG TAB PO SCH ×2 (08:55→20:37)
[2018-08-20] MEDS: Enoxaparin Sodium 40 MG/0.4 ML SYRINGE SC SCH ×2 (10:17→14:59)
--- NOTE | 2018-08-20 12:09 | PRG ---
DATE OF SERVICE: 08/20/2018 SUBJECTIVE: The patient was seen sitting up in bed as well as walking with physical therapy this morning. The patient has been tolerating p.o. intake well. The patient has had passed some gas and states her pain is well controlled. The patient continues with epidural in place and her urinary catheter is still in place. OBJECTIVE: VITAL SIGNS: Temperature 97.9, pulse 80, respirations 20, O2 saturation 92 on room air. BP 108/75. GENERAL: Well-appearing, middle-aged female, lying in bed with no signs of acute distress, seen walking with physical therapy with a walker. PULMONARY: Lung sounds are bilaterally clear to auscultation. No signs of acute respiratory distress. CARDIAC: Regular rate and rhythm. 1/6 systolic murmur present. No rubs or gallops. GI: Abdomen is soft, nontender with positive bowel sounds. EXTREMITIES: 2+ pulses in upper and lower extremities. No significant swelling noted. NEURO: GCS is 15. Gross motor is intact. LABORATORY FINDINGS: No new laboratory findings to report. DIAGNOSTIC FINDINGS: No new diagnostic findings to report. ASSESSMENT: 1. Left femoral neck fracture, status post total hip arthroplasty. 2. History of stage IV metastatic breast cancer with metastasis to the T-spine, hypertension and hyperlipidemia. 3. Acute traumatic pain to the left femoral neck with fracture, well controlled on medication. 4. Hypokalemia, resolved. 5. Hypophosphatemia, resolved. PLAN: The patient will continue to work with Physical and Occupational therapy to evaluate need for further rehab. We will continue to hold the patient's antihypertensives. The patient's pain is well controlled at this time. Her epidural is being monitored by anesthesia. The patient was seen and examined by Dr. Lara during morning rounds. Discussed plan of care with the patient's family who are in agreement. Job ID: [id number] [facility]
[2018-08-20] MEDS: Fentanyl 5 mcg/Bup 0.075% Cadd 100 ML EPIDURAL SCH (14:59)
[2018-08-20] MEDS: Atorvastatin Calcium 40 MG TAB PO SCH (20:39)
[2018-08-20] MEDS: [UNRECOGNIZED DRUG - OTHER] PO SCH (20:45)
[2018-08-20] MEDS: Zolpidem Tartrate 5 MG TAB PO PRN (22:59)
[2018-08-21] MEDS: HYDROcodone/Acetaminophen 5/325 mg Tablet PO PRN ×3 (06:46→15:35)
[2018-08-21] MEDS: Fentanyl 5 mcg/Bup 0.075% Cadd 100 ML EPIDURAL SCH (06:58)
[2018-08-21] MEDS: Gabapentin 100 MG CAP PO SCH ×3 (08:33→20:11)
[2018-08-21] MEDS: Famotidine 20 MG TAB PO SCH ×2 (08:33→20:11)
[2018-08-21] MEDS: Senokot S 8.6-50 MG TAB PO SCH ×2 (08:33→20:11)
[2018-08-21] MEDS ORDERED: traMADol HCl 50 MG TAB PO PRN (10:08)
[2018-08-21] MEDS: Ibuprofen 800 MG TAB PO SCH ×3 (10:45→21:52)
[2018-08-21] MEDS ORDERED: Acetaminophen 500 MG TAB PO SCH (12:00)
--- NOTE | 2018-08-21 14:27 | PRG ---
DATE OF SERVICE: 08/21/2018 SUBJECTIVE: The patient is seen this morning sitting up in bed, awake and alert. The patient reports that her pain is well controlled. She has been tolerating her diet well. The patient has had a bowel movement. The patient also had her epidural removed this morning and her Foreman is still in place. Physical Therapy and Occupational Therapy continued to work with the patient. OBJECTIVE: VITAL SIGNS: Temperature 97.7, pulse 67, respirations 18, O2 93 on room air, and blood pressure 125/66. GENERAL: Well-appearing middle-aged female, in no sign of acute distress. The patient was seen working with Physical Therapy and walking with a walker. PULMONARY/LUNGS: Clear to auscultation. No acute signs of respiratory distress. Chest rise is equal. CARDIAC: Regular rate and rhythm. 1/6 systolic murmur present. GI: Abdomen is soft and nontender. Positive bowel sounds. EXTREMITIES: 2+ pulses in upper and lower extremities. No significant swelling noted. NEUROLOGIC: GCS is 15. Gross motor is intact. LABORATORY FINDINGS: No new laboratory findings to report. DIAGNOSTIC FINDINGS: No new diagnostic findings to report. ASSESSMENT: 1. Left femoral neck fracture, status post total hip arthroplasty. 2. History of stage IV metastatic breast cancer with metastasis to the T-spine, hypertension, and hyperlipidemia. 3. Acute traumatic pain to the left femoral neck with fracture, well controlled on medications. 4. Hypokalemia, resolved. 5. Hypophosphatemia, resolved. THE: The patient will continue to work with Physical and Occupational Therapy. The patient was transitioned to p.o. pain management today and her epidural was discontinued. Her Foreman catheter will be removed. Plan to discharge the patient tomorrow to a rehab facility. The patient is seen and examined by Dr. Lara during morning rounds. Discussed plan of care with the patient, who is in agreement. Job ID: [id number]
[2018-08-21] MEDS: Enoxaparin Sodium 40 MG/0.4 ML SYRINGE SC SCH (15:36)
[2018-08-21] MEDS: Atorvastatin Calcium 40 MG TAB PO SCH (20:11)
[2018-08-21] MEDS: [UNRECOGNIZED DRUG - OTHER] PO SCH (20:12)
[2018-08-21] MEDS: Zolpidem Tartrate 5 MG TAB PO PRN (21:52)
[2018-08-22] MEDS: HYDROcodone/Acetaminophen 5/325 mg Tablet PO PRN ×2 (03:12→09:00)
[2018-08-22] MEDS: Ibuprofen 800 MG TAB PO SCH ×2 (06:00→11:12)
[2018-08-22] MEDS: Gabapentin 100 MG CAP PO SCH ×2 (08:54→15:48)
[2018-08-22] MEDS: Famotidine 20 MG TAB PO SCH (08:54)
[2018-08-22] MEDS: Senokot S 8.6-50 MG TAB PO SCH (08:55)
[2018-08-22] MEDS ORDERED: Lisinopril/Hydrochlorothiazide 20/25 mg Tablet PO SCH (09:00)
[2018-08-22] MEDS: Enoxaparin Sodium 40 MG/0.4 ML SYRINGE SC SCH (15:48)
[2018-08-22 16:01] VITALS: BP 125/83; TEMP 98.1
--- NOTE | 2018-08-22 22:55 | DIS ---
DATE OF ADMISSION: 08/17/2018 DATE OF DISCHARGE: 08/22/2018 ADMISSION DIAGNOSIS: Status post left femoral neck fracture. DISCHARGE DIAGNOSIS: Status post left femoral neck fracture. CONSULTING PHYSICIAN: Dr. Lovett of Orthopedic Surgery. PROCEDURES: She went to the OR on August 18, 2018, and had a press-fit total hip arthroplasty for fracture treatment. HOSPITAL COURSE: The patient is a 63-year-old female, who presented to the emergency department after she reported twisting and sitting on the toilet seat for which she had significant left hip pain. She came to the emergency department and was found to have a left femoral neck fracture. She went to the OR on August 18 and had a press-fit total hip arthroplasty for fracture treatment. Postoperatively, she had an epidural for pain control as well as Foreman, both of which were removed on August 21. After removal, the patient's pain was well controlled on p.o. pain medications and she was able to void without difficulty. She worked with Physical and Occupational Therapy. She was tolerating regular diet, voiding without difficulty, having bowel movements and pain was well controlled. She was started on all of her home medications. She was discharged to a rehab facility for further physical therapy. DISCHARGE DISPOSITION: Acute rehab. DISCHARGE CONDITION: Satisfactory. PHYSICAL EXAMINATION: VITAL SIGNS: Temperature 98.1, pulse 89, respirations 18, oxygen 100% on room air, and blood pressure 125/83. GENERAL: Well-appearing middle-aged female, sitting up in chair with no signs of acute distress. PULMONARY: Equal chest rise and fall. Clear breath sounds bilaterally. No signs of acute respiratory distress. CARDIAC: Regular rate and rhythm. No murmurs, gallops, or rubs. GASTROINTESTINAL: Abdomen is soft, nontender, and nondistended. PELVIS: Stable with left-sided hip tenderness. EXTREMITIES: 2+ pulses in all extremities. Gross motor and sensation in all extremities. No signs of significant swelling noted. NEURO: GCS is 15. Pupils equal, round, reactive to light bilaterally. DISCHARGE INSTRUCTIONS: The patient was discharged to Acute Rehab facility. Activity as tolerated and weightbearing as tolerated in all extremities. She has a regular diet with no restrictions. She is to receive physical and occupational therapy. She also was recommended for an incentive spirometer and a walker. DISCHARGE MEDICATIONS: The patient is to continue with, 1. Vitamin D2. 2. Flonase nasal spray. 3. Lisinopril/hydrochlorothiazide. 4. Senokot. 5. Tramadol 50 mg q.6 hours p.r.n. 6. Aspirin. 7. Atorvastatin. 8. Etodolac. 9. Fentanyl patch. 10. Gabapentin. 11. Hydrocodone/acetaminophen. 12. Methocarbamol. 13. Metoprolol. 14. Eucerin cream. 15. Ibrance. 16. Ambien. FOLLOWUP APPOINTMENTS: She is to follow up with Dr. Lovett in 2 to 3 weeks. This is merely a summary of the patient's hospitalization. For full details, please see her medical record in its entirety. Job ID: [id number]
--- NOTE | 2018-08-23 13:30 | EKG ---
Test Reason : Blood Pressure : / mmHG Vent. Rate : 053 BPM Atrial Rate : 053 BPM P-R Int : 152 ms QRS Dur : 088 ms QT Int : 448 ms P-R-T Axes : 000 -07 004 degrees QTc Int : 420 ms Sinus bradycardia Otherwise normal ECG Confirmed by SARMAD MEADOWS, GREGORY ([id number]), newspaper editor managing CHRISTINE ARCEO ([id number] on 08/23/2018 1:29:39 PM Referred By: Confirmed By:GREGORY BAÑUELOS MD
== END 2018-08-22 16:00 | DRG 470 ==
LOC: ERS 15:17 → SJJU 20:53
PROVIDERS: ADMIT Orthopaedic Surgery; ATTEND Orthopaedic Surgery
PROC: 0SRB0JA Replacement of Left Hip Joint with Synthetic Substitute, Uncemented, Open Approach (ICD-10-PCS; principal; 2018-08-18)
DX: M84.452A Pathological fracture, left femur, initial encounter for fracture (principal); C79.51 Secondary malignant neoplasm of bone; C50.919 Malignant neoplasm of unspecified site of unspecified female breast; I10 Essential (primary) hypertension; Z79.82 Long term (current) use of aspirin; E78.5 Hyperlipidemia, unspecified; E83.39 Other disorders of phosphorus metabolism; E87.6 Hypokalemia; Z98.51 Tubal ligation status
CPT/HCPCS: 36415; 62321; 71045; 72170; 80048; 80053; 81001; 83735; 84100; 84484; 85025; 85379; 85610; 85730; 86850; 86900; 86901; 88305; 88309; 88311; 88341; 88342; 90471; 90670; 93005; 96374; 99214; C1776; G0009; G0463; J0690; J1030; J1100; J1650; J2001; J2250; J2270; J2405; J2704; J3010; J3370; J3490; J7050; Q9967; S0020

== ENCOUNTER 2018-10-08 13:23 | Day surgery (SDC) | payer MEDICARE, OTHER ==
[2018-10-07 14:24] VITALS: BMI 26.5
[2018-10-08] MEDS ORDERED: Heparin 10,000 UNITS/1 ML VIAL ONE (15:10)
[2018-10-08] MEDS ORDERED: Sodium Chloride 0.9% 0 ML ONE (15:10)
[2018-10-08] MEDS ORDERED: Bupivacaine HCl 0.5%/Epinephrine 1:200,000/PF 30 ml Vial ONE (15:10)
[2018-10-08] MEDS ORDERED: Lidocaine 2% PF 5 ML VIAL ONE (15:10)
[2018-10-08] MEDS ORDERED: Propofol 500 MG/50 ML VIAL ONE (15:30)
[2018-10-08] MEDS ORDERED: Bupivacaine/Epinephrine 0.25% 30 ML VIAL ONE (15:33)
--- NOTE | 2018-10-08 16:58 | RAD ---
Chest one view HISTORY: Line placement. COMPARISON: 08/17/2018. FINDINGS: Cardiac silhouette is magnified by projection. Left margin partially obscured by left pleur al fluid and increasing infiltrate at the left base. Mediastinum is midline. Tip of a right internal jugular Port-A-Cath projects over the superior vena cava. No evidence of pneumothorax. Metal lic clips overlie the left axilla. IMPRESSION: Right internal Port-A-Cath is in good radiographic position. Increasing left pleural fluid and basilar atelectasis/infiltrate
--- NOTE | 2018-10-08 23:05 | OP ---
DATE OF PROCEDURE: 10/08/2018 PREOPERATIVE DIAGNOSIS: Metastatic breast cancer to bone. POSTOPERATIVE DIAGNOSIS: Metastatic breast cancer to bone. PROCEDURE PERFORMED: Total central line with subcutaneous port (MediPort). ANESTHESIA: TIVA local. ESTIMATED BLOOD LOSS: Minimal. COMPLICATIONS: None. SPECIMEN: None. FINDINGS: Tip of the catheter was at the atriocaval junction. DESCRIPTION OF PROCEDURE: The patient was taken to the operating room and laid supine on the operating room table. After sedation was obtained, bilateral neck and chest were prepped and draped in a sterile fashion. Local anesthetic was infiltrated over the right internal jugular vein. Internal jugular vein cannulated using a 22-gauge finder needle followed by a Seldinger needle. Wire was passed into the superior vena cava under fluoro guidance. A small lianna was made to at the wire entrance site. A separate 3 cm incision was made in the right upper chest. Subcutaneous pocket was made below the lower incision. Tubing for the MediPort tunneled from the inferior to superior incision. Introducer sheath was placed over the wire into the superior vena cava. The dilator and wire were removed. The end of the catheter sewed into the sheath. The sheath was peeled away. The tip of the catheter was at the atriocaval junction. The MediPort tubing was cut to fit the MediPort at lower incision, connected to the MediPort, which was sewn to the chest wall in the subcutaneous pocket using Prolene. The MediPort flushes and draws blood without difficulty. It was flushed with a heparin flush. The wounds were all irrigated and closed using 3-0 Vicryl, 4-0 Monocryl, and Dermabond. The patient was sent to Recovery in stable condition. All instrument counts, needle counts, and lap counts were correct. Job ID: [id number]
== END 2018-10-08 17:42 | disposition home or self-care (01) ==
LOC: SDC 13:23
PROVIDERS: ATTEND Surgery
PROC: 05HM33Z Insertion of Infusion Device into Right Internal Jugular Vein, Percutaneous Approach (ICD-10-PCS; principal; 2018-10-08)
DX: Z45.2 Encounter for adjustment and management of vascular access device (principal); C50.919 Malignant neoplasm of unspecified site of unspecified female breast; C79.51 Secondary malignant neoplasm of bone
CPT/HCPCS: 71045; 76000; C1788; J0670; J0690; J1642; J1644; J2001; J2704

== ENCOUNTER 2018-11-11 13:02 | Outpatient (CLI) | payer MEDICARE ==
--- NOTE | 2018-11-11 16:31 | PET ---
Exam: PET CT skull to mid thigh COMPARISON: 04/22/2018 HISTORY: Malignant neoplasm of the upper outer quadrant of left breast TECHNIQUE: A PET/CT was performed from the skull to the mid thigh after administration of 10.3 millic uries of F-18 FDG. Evaluation was performed on a [employer] workstation. FINDINGS: NECK: There is mild increased metabolic activity, SUV of 2.5, localizing to exophytic nodular density of the right thyroid lobe, grossly stable. CHEST: Linear oriented left paramediastinal density is present within the medial left upper hemithora x, with associated hypermetabolic activity, SUV maximum of 3.3. There are diffuse interstitial and nodular densities of the lungs bilaterally, with the predominance of the nodular densities below size threshold for PET resolution. Findings are new from prior exam indicating interval progression of metastatic disease. ABDOMEN/PELVIS: Hypermetabolic lesions of the posterior segment right hepatic lobe are present, with maximum SUV of approximately 7, new from prior exam indicating interval progression of metastatic disease. The pelvis is extensively limited by streak artifact from left hip hardware. Activity relate d to the bladder is present. Additional activity to the left of midline likely represents the left lateral aspect of the urinary bladder although this cannot be reliably confirm due to the degree of a rtifact. SKELETON: Extensive hypermetabolic osseous lesions are present throughout the axial and appendicular skeleton, as visualized, a marked interval progression from prior exam with numerous lesions throughout the imaged cervical, thoracic, and lumbosacral spine, as well as numerous bilateral ribs a s well as the osseous pelvis bilaterally. SUV maximum of the osseous lesions localizes to the L1 level, 14.3. IMPRESSION: Marked interval progression of diffuse, widespread metastatic disease involving the chest , abdomen and pelvis, and diffusely throughout the visualized skeleton. Transcribed Date/Time: 11/11/2018 4:40 PM
== END 2018-11-11 13:03 | disposition home or self-care (01) ==
LOC: PET 13:02
PROVIDERS: ATTEND Internal Medicine Hematology & Oncology
DX: C50.412 Malignant neoplasm of upper-outer quadrant of left female breast (principal); C78.02 Secondary malignant neoplasm of left lung; C79.51 Secondary malignant neoplasm of bone
CPT/HCPCS: 78815; A9552

== ENCOUNTER 2019-03-03 16:05 | Outpatient (CLI) | payer MEDICARE, OTHER ==
--- NOTE | 2019-03-03 16:37 | ULT ---
Exam: Left lower extremity venous ultrasound with Doppler COMPARISON: 08/17/2018 HISTORY: Left leg pain TECHNIQUE: Grayscale, color flow, Doppler imaging and spectral wave was performed left lower extremit y venous system FINDINGS: There is compressibility, presence of flow and augmentation in the common femoral vein, femoral vein and popliteal vein. Flow in the posterior tibial vein. Flow the greater saphenous vein and profunda femoral vein IMPRESSION: No evidence of thrombus in the left lower extremity deep venous
== END 2019-03-03 16:06 | disposition home or self-care (01) ==
LOC: ULT 16:05
PROVIDERS: ATTEND Internal Medicine Hematology & Oncology
DX: M79.605 Pain in left leg (principal); R60.0 Localized edema
CPT/HCPCS: 80053; 82248; 83615; 84100; 84550; 86300

== ENCOUNTER 2019-03-26 09:18 | Outpatient (CLI) | payer MEDICARE ==
--- NOTE | 2019-03-26 10:34 | CT ---
CT OF THE THORACIC SPINE WITHOUT IV CONTRAST: INDICATION: History of breast cancer with metastatic disease to the bone. History of fall with back pain. COMPARISON: MRI of the thoracic spine dated 07/24/2018. FINDINGS: There are small bilateral pleural effusions. There is nodularity involving the pleural surfaces of jan th lungs suspicious for pleural-based metastatic disease. There has been interval development of pathologic central endplate compression abnormalities involving T2, T3, T4 and T5. There is a chronic wedge compression abnormality of T11. There is also an interval wedge compression abnormality of L1. There is diffuse osteoblastic metastatic disease. Spinal alignment appears within normal limits. IMPRESSION: 1. Interval pathologic compression fractures of T2, T3, T4, T5 and L1. Stable chronic T11 wedge compr ession fracture. 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 2. Pleural-based metastatic disease of both lungs with small bilateral pleural effusions. Transcribed Date/Time: 03/26/2019 10:52 AM
--- NOTE | 2019-03-26 10:42 | CT ---
CT LUMBAR SPINE WITHOUT CONTRAST: HISTORY: Low back pain. Osseous metastases, multifocal. CORRELATION: MRI lumbar spine 07/24/2018, PET imaging 01/15/2019. FINDINGS: Visualized retroperitoneal structures do not demonstrate any obvious masses or lymphadenopathy. Symme tric attenuation of the paraspinal muscles and psoas muscles. Visualized solid organs are grossly unremarkable. Acute mild compression fracture involving the superior endplate of L1 with minimal paraspinal posttra umatic change. Mild retropulsion. There is a fracture involving the left lamina near its junction with the left facet (axial image #13). No evidence of an additional fracture throughout the visualized lumbar spine and iliac bones. There i s a left S1 vertebral body fracture. Sacroiliac joints demonstrate mild vacuum joint phenomenon. Intact transverse processes and spinous processes. 2.9 mm of retrolisthesis of T12 upon L1. There is multifocal osseous metastases. There does appear to be narrowing of the sacral neural foramina secondary to osseous involvement of m alignancy. Limited evaluation the contents of the central spinal canal and neural foramina due to technique. T12-L1: Mild central canal stenosis secondary to broad-based disc bulge. Neural foramina are patent. L1 vertebral body: Mild central canal stenosis secondary to retropulsion. L1-L2: Broad-based disc bulge, ligament flavum thickening and facet hypertrophy result in moderate ce ntral canal stenosis. Right neural foramen is mildly narrowed. Moderate left neural foraminal narrowing. L2-L3: Broad-based disc bulge without significant central canal stenosis. Mild bilateral foraminal na rrowing. L3-L4: Broad-based disc bulge with mild central canal stenosis. Right neural foramen is moderately na rrowed. Left neural foramen is patent. L4-L5: Broad-based disc bulge does make contact with the thecal sac. There is mild ligament flavum th ickening and facet hypertrophy. Overall mild central canal stenosis. Moderate right neural foraminal narrowing. Mild left neural foraminal narrowing. L5-S1: Broad-based disc bulge, without significant canal stenosis. Mild bilateral foraminal narrowing . IMPRESSION: 1. Superior endplate fracture involving L1. There is a fracture lucency involving the left L1 lamina with its junction to the facet. 2. Left S1 vertebral body fracture. 3. Degenerative changes of the lumbar spine as above. 4. Multifocal osseous metastases. 5. Narrowing of the sacral neural foramina secondary to osseous metastases. Correlate clinically. Transcribed Date/Time: 03/26/2019 11:04 AM
== END 2019-03-26 09:19 | disposition home or self-care (01) ==
LOC: BICCT 09:18
PROVIDERS: ATTEND Anesthesiology Pain Medicine
DX: M48.04 Spinal stenosis, thoracic region (principal); M47.26 Other spondylosis with radiculopathy, lumbar region; K59.03 Drug induced constipation; C50.919 Malignant neoplasm of unspecified site of unspecified female breast; C79.51 Secondary malignant neoplasm of bone; C78.01 Secondary malignant neoplasm of right lung; C78.02 Secondary malignant neoplasm of left lung; M84.48XA Pathological fracture, other site, initial encounter for fracture; M53.3 Sacrococcygeal disorders, not elsewhere classified; J90 Pleural effusion, not elsewhere classified
CPT/HCPCS: 72128; 72131

== ENCOUNTER 2019-05-01 09:00 | Outpatient (CLI) | payer MEDICARE, OTHER ==
--- NOTE | 2019-05-01 13:44 | PET ---
EXAM: PET/CT HISTORY: Malignant neoplasm of the upper outer quadrant of the left female breast. Breast cancer with bone and lung metastasis. Last chemotherapy was on 04/14/2019. Radiotherapy to the left femoral neck was on 09/29/2018. Exam requested to evaluate for subsequent treatment. TECHNIQUE: PET scanning with CT attenuation correction was performed from the base of the brain to the proximal thighs following the intravenous administration of 11 millicuries [id number]. COMPARISON: 01/15/2019 FINDINGS: No mary jo hypermetabolism is seen in the neck, chest, axillae, abdomen and pelvis. Multiple hypermetabolic lesions in the liver are again seen with the maximum SUV of 6.7 in the dome a nd 8 in the inferior tip. Previous maximum SUV in the liver lesions was 4.7. Numerous extensive hypermetabolic osseous lesions are again present with new lesions in the pelvis an d right proximal femur. No hypermetabolic pulmonary nodules and adrenal lesions are seen. There is physiologic activity in the heart, GI and tracts and the visualized portions of the brain . The CT scan used for attenuation correction demonstrates no evidence of ascites. There is a small rig ht pleural effusion. Pleural thickening on the left is again seen. Numerous sclerotic lesions throughout the skeleton are again noted. There is colonic diverticulosis and a left hip prosthesis. IMPRESSION: Interval worsening of liver and osseous metastases since 01/14/2019.
== END 2019-05-01 09:01 | disposition home or self-care (01) ==
LOC: PET 09:00
PROVIDERS: ATTEND Internal Medicine Hematology & Oncology
DX: C50.412 Malignant neoplasm of upper-outer quadrant of left female breast (principal); C78.02 Secondary malignant neoplasm of left lung; C79.51 Secondary malignant neoplasm of bone
CPT/HCPCS: 78815; A9552

== ENCOUNTER 2019-05-12 08:43 | Outpatient (CLI) | payer MEDICARE, OTHER ==
--- NOTE | 2019-05-12 13:04 | CT ---
CT PELVIS WITH IV CONTRAST: Axial tomograms obtained through the pelvis with IV enhancement. INDICATION: Pelvic pain. Breast cancer with known osseous metastatic lesions. COMPARISON: Comparison is made to recent PET CT of 05/01/2019. FINDINGS: Extensive blastic lesions are seen throughout the visualized osseous structures of the lower lumbar s pine and pelvis. There is a left hip prosthesis. There has been no change in the appearance of the bony metastatic process when compared to recent pelvic CT of 05/01/2019. However, on today's exam, there is now evidence of a fracture involving the right ischium. This invo lves the anterior column of the right acetabulum and extends to the articular surface. It involves t he right superior ischial ramus. There is evidence of a probable humeral fracture involving the right inferior ramus which is stable i n appearance to the recent PET CT. There is evidence of some healing at this fracture with callus fo rmation. Incidentally on soft tissue windows are abnormalities in the inferior right lobe of the liver indicat ing metastatic liver involvement. IMPRESSION: 1. Fractured right ischium involving the anterior column of the right acetabulum and the root of the right superior ischial ramus. 2. Fracture of the right inferior ramus with evidence of some interval healing. 3. The diffuse osseous metastatic process is again seen without change from the recent PET CT. Findings are related to Dr. Saucedo. CODE CR POS: ZEINA
[2019-05-12] MEDS ORDERED: Iopamidol-370 76% 500 ML 1 ML ONE (13:53)
== END 2019-05-12 08:44 | disposition home or self-care (01) ==
LOC: BICCT 08:43
PROVIDERS: ATTEND Internal Medicine Hematology & Oncology
DX: R93.7 Abnormal findings on diagnostic imaging of other parts of musculoskeletal system (principal); C50.412 Malignant neoplasm of upper-outer quadrant of left female breast; C79.51 Secondary malignant neoplasm of bone; M84.550D Pathological fracture in neoplastic disease, pelvis, subsequent encounter for fracture with routine healing
CPT/HCPCS: 72193; Q9967

== ENCOUNTER → 2019-06-17 | Day surgery (SDC) | payer MEDICARE, OTHER ==
[2019-06-16 12:00] VITALS: BMI 21.2
[~2019-06-17] MED LIST changes: +Bupivacaine 0.25% HCL 30 ML VIAL ONE; +Dextrose 50% Abboject 50 ML SYRINGE ONE; +Fentanyl 100 MCG/2 ML VIAL ONE; +HYDROcodone/Acetaminophen 5/325 mg Tablet ONE; +Ketorolac Tromethamine 30 MG/ML VIAL ONE; +Lidocaine 1% w/Epinephrine 1:100K 20 ML VIAL ONE; +PHENYLEPHRINE-NS 100 MCG/ML 10 ML SYRINGE ONE; +Phenylephrine 10 MG/ML VIAL ONE; +Propofol 500 MG/50 ML VIAL ONE; +SUGAMMADEX SODIUM 200 MG/2 ML VIAL ONE; +Sodium Chloride 0.9% 0 ML ONE; -ePHEDrine 50 MG/ML VIAL ONE
[2019-06-17 09:55] LABS: #Eosinphils 0.1 thou/uL (0.0-0.7); #Lymphocytes 0.4 thou/uL (1.20-3.40); #Monocytes 0.7 thou/uL (0.11-0.59); #Neutrophils 3.4 thou/uL (1.40-6.50); %Eosinophils 1.1 % (0.0-10.0); %Lymphocytes 8.8 % (21.0-51.0); %Monocytes 14.6 % (0.0-10.0); %Neutrophils 75.6 % (42.0-75.0); Hemoglobin 10.1 g/dL (12.0-16.0); Mean Corpuscular HGB CONC 32.2 g/dL (32.0-36.0); Mean Corpuscular Hemoglobin 28.9 pg (27.0-31.0); Mean Corpuscular Volume 89.5 fL (78.0-98.0); Mean Platelet Volume 8.1 fL (7.4-10.4); Platelet Count 174 thou/uL (130-400); RBC Distribution Width 16.9 % (11.5-14.5); White Blood Cell (WBC) Count 4.5 thou/uL (4.8-10.8)
[2019-06-17 10:13] LABS: ALT (SGPT) 7 U/L (8-55); AST (SGOT) 51 U/L (5-34); Albumin 3.8 g/dL (3.4-4.8); Alkaline Phosphatase 212 U/L (40-110); Anion Gap 14 mmol/L (10-20); BUN (Urea Nitrogen) 7 mg/dL (9.8-20.1); Bilirubin, Total 0.5 mg/dL (0.2-1.2); Calc. Creatinine Clearance 103 mL/min (70-130); Calcium 9.4 mg/dL (7.8-10.44); Carbon Dioxide 31 mmol/L (23-31); Chloride 99 mmol/L (98-107); Estimated GFR-MDRD Greater than 90; Globulin 2.1 g/dL (2.4-3.5); Potassium 3.1 mmol/L (3.5-5.1); Protein, Total 5.9 g/dL (6.0-8.3); Sodium 141 mmol/L (136-145)
[2019-06-17 10:21] LABS: Glucose 46 mg/dL (80-115)
--- NOTE | 2019-06-17 12:44 | OP ---
DATE OF PROCEDURE: 06/17/2019 PREOPERATIVE DIAGNOSIS: Metastatic breast cancer with chronic pain. PROCEDURE PERFORMED: Insertion of implantable programable intrathecal pain pump. INDICATIONS: A 64-year-old female with severe bone pain from metastatic disease. She had a trial that was successful. FINDINGS: Dr. Wren inserted the catheter in the intrathecal space. I created the pocket. DESCRIPTION OF PROCEDURE: After informed consent was obtained, the patient was taken to the operating room and given general endotracheal anesthesia. She was placed in the left lateral decubitus position. Her back, flank, and abdomen were prepped and draped in usual fashion. Dr. Wren made an incision in the back and was able to get the catheter in the intrathecal space. Once that was successful and there was good CSF in the catheter, a transverse right lower quadrant incision was performed and subcu divided sharply. A pocket was created on the anterior abdominal wall fascia with electrocautery. Hemostasis was achieved with electrocautery. Four sutures of 2-0 Prolene were placed in 4 quadrants. The tunneling device was then advanced between the anterior and the posterior incisions. The catheter was threaded through the tunneling device and brought out anteriorly. Then, the tunneling device removed. The catheter was then connected to the connecting piece and secured. The pump had been primed and was connected to the connector. Approximately 6 inches of excess tubing had been excised and the wrap had measured that. The pump was then inserted within the pocket and the 2-0 Prolene sutures were threaded through the eyelets on the pump and tied down. Redundant catheter was placed underneath posterior to the pump. Hemostasis was assured and the subcu was reapproximated with interrupted 2-0 Vicryl suture. The skin was closed with running subcuticular 4-0 Rapide. Steri-Strips applied. Sterile bandage applied. Then, the wrap was able to program the pump. The patient tolerated the procedure well, transferred to Recovery in good condition. Job ID: [id number]
--- NOTE | 2019-06-17 17:10 | RAD ---
EXAM: XR Lumbar Spine 2 Or 3 View PROVIDED CLINICAL HISTORY: Pain pump insertion COMPARISON: None FINDINGS/IMPRESSION: AP and lateral views lumbar spine are submitted. AP projection demonstrates metallic instrument overl markus the upper lumbar spine. Lateral views demonstrate mild wedge-shaped compression fractures involving upper lumbar vertebral bodies with overall mottled appearance of the visualized lumbar vert ebral bodies most compatible with multifocal osseous metastatic disease better visualized on CT lumbar spine on 03/26/2019. Correlation with intraoperative findings is recommended.
--- NOTE | 2019-06-17 18:50 | OP ---
DATE OF PROCEDURE: 06/17/2019 PREOPERATIVE DIAGNOSES: 1. Metastatic breast cancer with multiple thoracic and lumbar compression fractures due to metastatic disease. 2. Chronic pain not controlled by oral narcotic analgesics. PROCEDURES PERFORMED: 1. Implantation of a Medtronic programmable drug delivery pump system. 2. Implantation of intrathecal catheter for Medtronic programmable drug delivery system. 3. Fluoroscopic guidance. 4. Programming with fill. ANESTHESIA: General endotracheal anesthesia. COMPLICATIONS: None. BLOOD LOSS: Less than 10 mL. CO-SURGEON: MD Dr. Holger Tanner performed the intrathecal catheter implant and Dr. Hanson performed the Medtronic pump implant. DESCRIPTION OF PROCEDURE: This summary will describe the intrathecal catheter implant only. Please see separate dictation for the intrathecal pump Medtronic implant per Dr. Hanson. The patient was placed in a left lateral decubitus, after successful general endotracheal anesthesia, was placed in the left lateral decubitus position. Standard landmarks L3-L4 were identified from the iliac crest. After standard prep and drape, incision was made. Paramedian right side L2 through L4, blunt dissection to the fascia using a right paramedian approach. The supplied spinal needle was advanced into the interspace at L2-L3, under fluoroscopic guidance. CSF was not encountered. The catheter was then advanced under fluoroscopic lateral imaging such the catheter tip was at T9. The stylet was removed from the catheter. The needle was then removed. The catheter was intact and at T9 as identified by followup fluoro images. The supplied catheter anchor was slipped over the catheter imbedded into the fascia and then implemented, such that the catheter anchor system was seated tightly around the catheter, but no flow was constricted. There was clear CSF flow through the intrathecal catheter tip. The catheter anchor was then anchored to the fascia and sewn to the fascia using 2-0 silk sutures and the skin was closed in layers using 2-0 Vicryl with a 4-0 repeat subcuticular for the skin. The tunneling was accomplished between anterior-posterior incisions using the supplied tunneler and the catheter was advanced to the anterior abdominal region, where Dr. Hanson had implanted a Medtronic programmable pump. All connections were made in the catheter and the catheter was attached to the pump in standard fashion. Please see dictation from Dr. Hanson for the pump implant. Prior to closure, all counts were correct x2. No complications. Job ID: [id number]
--- NOTE | 2019-06-18 08:31 | EKG ---
Test Reason : PREOP Blood Pressure : / mmHG Vent. Rate : 092 BPM Atrial Rate : 092 BPM P-R Int : 188 ms QRS Dur : 092 ms QT Int : 386 ms P-R-T Axes : 018 -39 034 degrees QTc Int : 477 ms Normal sinus rhythm Left axis deviation Anterior infarct , age undetermined Abnormal ECG When compared with ECG of 17-AUG-2018 18:07, Vent. rate has increased BY 39 BPM QRS axis Shifted left Nonspecific T wave abnormality has replaced inverted T waves in Inferior leads QT has lengthened Confirmed by DR. Evangelina TAM ([id number]) on 06/18/2019 8:30:59 AM Referred By: JAK Confirmed By:DR. Evangelina TAM
== END | disposition home or self-care (01) ==
LOC: SDC 17:55
PROVIDERS: ATTEND Surgery
PROC: 0JH70VZ Insertion of Infusion Pump into Back Subcutaneous Tissue and Fascia, Open Approach (ICD-10-PCS; principal; 2019-06-17)
DX: G89.3 Neoplasm related pain (acute) (chronic) (principal); C50.912 Malignant neoplasm of unspecified site of left female breast; I10 Essential (primary) hypertension; Z79.899 Other long term (current) drug therapy
CPT/HCPCS: 62362; 72100; 76000; 80053; 82962; 85025; 93005; C1772; 36415; 36416; 93010; J0690; J1100; J1885; J2001; J2370; J2405; J2704; J3010; S0020

== ENCOUNTER 2019-07-14 12:34 | Emergency (ER) | payer MEDICARE, OTHER ==
[2019-07-14 13:04] LABS: #Lymphocytes 0.4 thou/uL (1.20-3.40); #Monocytes 0.9 thou/uL (0.11-0.59); #Neutrophils 4.6 thou/uL (1.40-6.50); %Basophils 0.1 % (0.0-1.0); %Eosinophils 0.2 % (0.0-10.0); %Lymphocytes 6.9 % (21.0-51.0); %Monocytes 14.7 % (0.0-10.0); %Neutrophils 78.1 % (42.0-75.0); Hemoglobin 10.7 g/dL (12.0-16.0); Mean Corpuscular HGB CONC 31.5 g/dL (32.0-36.0); Mean Corpuscular Hemoglobin 27.2 pg (27.0-31.0); Mean Corpuscular Volume 86.4 fL (78.0-98.0); Mean Platelet Volume 8.4 fL (7.4-10.4); Platelet Count 210 thou/uL (130-400); Red Blood Cell (RBC) Count 3.94 mill/uL (4.20-5.40); White Blood Cell (WBC) Count 5.9 thou/uL (4.8-10.8)
--- NOTE | 2019-07-14 13:11 | RAD ---
EXAM: XR Chest 1 View Portable PROVIDED CLINICAL HISTORY: Altered mental status COMPARISON: 10/08/2018 FINDINGS: Cardiac silhouette remains enlarged. Right IJ implanted port is again seen in similar position. Patch y foci of increased density overlying the right lower and upper lung zones that could be parenchymal in origin. There is persistent pleural-based density involving the lateral aspect of the left hemithorax as well as probable cortical disruption of one of the lateral left mid ribs. Parenchymal nodule involving the left upper lung zone present. No evidence for pneumothorax. IMPRESSION: 1. Multifocal parenchymal opacities may reflect metastatic disease or pneumonia. 2. Abnormal pleural-based density involving the lateral left hemithorax with nondisplaced left-sided rib fracture.
[2019-07-14 13:12] LABS: Bilirubin Negative (Negative); Blood, Urine Negative (Negative); Clarity Clear (Clear); Glucose, Urine (Dipstick) 500 mg/dL (Negative); Leukocyte Negative Leu/uL (Negative); Nitrite Negative (Negative); Protein, Urine (Dipstick) Negative (Neg-Trace); Urobilinogen Normal mg/dL (Less than 2)
[2019-07-14 13:29] LABS: ALT (SGPT) 9 U/L (8-55); AST (SGOT) 60 U/L (5-34); Albumin 3.7 g/dL (3.4-4.8); Alkaline Phosphatase 320 U/L (40-110); Anion Gap 11 mmol/L (10-20); BUN (Urea Nitrogen) 5 mg/dL (9.8-20.1); Bilirubin, Total 0.4 mg/dL (0.2-1.2); CK (CPK) 164 U/L (29-168); Calc. Creatinine Clearance 0 mL/min (70-130); Calcium 8.5 mg/dL (7.8-10.44); Carbon Dioxide 29 mmol/L (23-31); Chloride 100 mmol/L (98-107); Estimated GFR-MDRD Greater than 90; Globulin 2.3 g/dL (2.4-3.5); Glucose 92 mg/dL (80-115); Magnesium 1.9 mg/dL (1.6-2.6); Potassium 3.8 mmol/L (3.5-5.1); Sodium 136 mmol/L (136-145)
[2019-07-14 13:50] LABS: CKMB 1.8 ng/mL (0-6.6)
[2019-07-14] MEDS ORDERED: Dexamethasone 4 mg/ml Vial ONE ×2 (15:06→15:07)
== END 2019-07-14 15:45 | disposition home or self-care (01) ==
LOC: ERS 12:34
DX: E16.2 Hypoglycemia, unspecified (principal); I10 Essential (primary) hypertension; C50.919 Malignant neoplasm of unspecified site of unspecified female breast; C79.89 Secondary malignant neoplasm of other specified sites; E78.00 Pure hypercholesterolemia, unspecified; Z79.899 Other long term (current) drug therapy
CPT/HCPCS: 36415; 36416; 71045; 80053; 81003; 82550; 82553; 83735; 84443; 84484; 85025; 93005; 94760; 96374; J1100

== ENCOUNTER 2019-07-16 08:05 | Inpatient (IN) | payer MEDICARE, OTHER ==
--- NOTE | 2019-07-16 08:40 | RAD ---
EXAM: XR Chest 1 View Portable PROVIDED CLINICAL HISTORY: Dyspnea COMPARISON: 07/14/2019 FINDINGS: Interval worsening of right hemithoracic airspace disease. Abnormal left pleural opacity is redemonst rated as is nodular density overlying left upper lung zone. No evidence for pneumothorax. Cardiac and mediastinal silhouette is unchanged in appearance. Right-sided implanted port is again seen. IMPRESSION: Worsening of right hemithoracic airspace disease.
[2019-07-16 08:46] LABS: Hemoglobin 9.9 g/dL (12.0-16.0); Mean Corpuscular HGB CONC 31.5 g/dL (32.0-36.0); Mean Corpuscular Hemoglobin 27.7 pg (27.0-31.0); Mean Corpuscular Volume 87.9 fL (78.0-98.0); Mean Platelet Volume 8.6 fL (7.4-10.4); Platelet Count 213 thou/uL (130-400); RBC Distribution Width 19.6 % (11.5-14.5); Red Blood Cell (RBC) Count 3.57 mill/uL (4.20-5.40); White Blood Cell (WBC) Count 6.2 thou/uL (4.8-10.8)
[2019-07-16 08:51] LABS: ALT (SGPT) 13 U/L (8-55); AST (SGOT) 77 U/L (5-34); Albumin 3.7 g/dL (3.4-4.8); Alkaline Phosphatase 347 U/L (40-110); Anion Gap 14 mmol/L (10-20); BUN (Urea Nitrogen) 8 mg/dL (9.8-20.1); Bilirubin, Total 0.3 mg/dL (0.2-1.2); Calc. Creatinine Clearance 0 mL/min (70-130); Calcium 8.5 mg/dL (7.8-10.44); Carbon Dioxide 29 mmol/L (23-31); Chloride 102 mmol/L (98-107); Estimated GFR-MDRD Greater than 90; Globulin 2.5 g/dL (2.4-3.5); Potassium 4.2 mmol/L (3.5-5.1); Protein, Total 6.2 g/dL (6.0-8.3); Sodium 141 mmol/L (136-145)
[2019-07-16 08:56] LABS: Glucose 51 mg/dL (80-115)
[2019-07-16] MEDS ORDERED: cefTRIAXone\\ROCEPHIN 1 GM VIAL ONE (09:05)
[2019-07-16 09:07] LABS: Band 37 % (5-11); Lymphocytes 10 % (21-51); MDiff Complete? YES; Metamyelocyte 1 % (0-0); Monocytes 9 % (0-10); Myelocyte 2 % (0-0); Neutrophil 41 % (42-75); Platelet Morphology Comment Appears Adequate; Polychromasia SLIGHT = 2-3 cells (100X) (0-2/hpf)
--- NOTE | 2019-07-16 09:10 | CT ---
EXAM: CTA Angio Chest W WO Con PROVIDED CLINICAL HISTORY: Dyspnea COMPARISON: PET/CT 05/01/2019 FINDINGS: There is no evidence for central or segmental pulmonary embolus. Vascular calcification including cor onary calcium is demonstrated. There is moderate right pleural fluid. There is circumferential left hemithoracic pleural thickening with associated nodularity. There is multifocal consolidation involving the right lower lobe. Consolidation is also seen involvin g the peribronchial aspects of the left lower lobe. There is opacification of portions of each lower lobe basilar bronchial system. The central airway ap pears patent and of normal caliber. No evidence for thoracic lymph node enlargement. Numerous hepatic hypodensities are again demonstrated, worsened with respect to prior. Extensive multifocal sclerotic and lytic change involving the regional osseous structures appearing a dvanced with respect to the prior study. IMPRESSION: 1. No evidence for central or segmental pulmonary embolus. 2. Right greater than left lower lobe consolidation compatible with pneumonia. This could reflect asp iration given the partial opacification of the basilar bronchial system. 3. Moderate right pleural fluid. 4. Interval worsening of left pleural, hepatic and osseous metastatic disease.
[2019-07-16] MEDS ORDERED: Azithromycin 500 MG VIAL ONE (09:52)
[2019-07-16 10:59] LABS: Bilirubin Negative (Negative); Blood, Urine Negative (Negative); Clarity Clear (Clear); Glucose, Urine (Dipstick) Normal (Negative); Leukocyte Negative Leu/uL (Negative); Nitrite Negative (Negative); Protein, Urine (Dipstick) Negative (Neg-Trace); Urobilinogen Normal mg/dL (Less than 2)
[2019-07-16] MEDS ORDERED: HYDROcodone/Acetaminophen 5/325 mg Tablet PO PRN ×2 (11:33)
[2019-07-16] MEDS ORDERED: Ondansetron PF 4 MG/2 ML Vial IVP PRN (11:33)
[2019-07-16] MEDS ORDERED: Acetaminophen 325 MG TAB PO PRN (11:33)
[2019-07-16] MEDS ORDERED: Ondansetron ODT 4 MG TAB SL PRN (11:33)
[2019-07-16 11:46] VITALS: BMI 21.9
[2019-07-16] MEDS ORDERED: Iopamidol-370 76% 500 ML 1 ML ONE (13:20)
[2019-07-16 13:22] LABS: Lactic Acid 2.1 mmol/L (0.5-2.2)
--- NOTE | 2019-07-16 17:46 | PDOC.HHP ---
Hospitalist HPI - History of Present Illness shortness of breath History of Present Illness: This is a 64 year old female with past medical history of lung cancer who received chemotherapy two days ago who presents with shortness of breath. When I tried taking a history from the patient she seemed very confused and did not know why she was here. Patient states that she has been feeling hot. She says she has a mild cough. Denies chest pain, fevers, chills, runny nose, sore throat . She denies muscle aches. Patient was found to be hypoxic to 90 % on room air, was placed on 3L nasal cannula with improvement. ED Course: In the ER, the patient was tachycardic but afebrile. Patient was hypoglycemic with a blood sugar of 50. Lactic acid was 2.1. The patient had a chest X ray that showed worsening of right hemithorax airspace disease. CTA thorax showed right greater than left lower lobe consolidation compatible with pneumonia, moderate right pleural fluid. Worsening left pleural, hepatic and osseous metastatic disease. She was given ceftriaxone and azithromycin in the ER as well as IV fluids. Hospitalist ROS - Review of Systems Constitutional: denies: fever, chills Hospitalist History - Past Medical History Other Medical History: Metastatic breast cancer stage IV to the back Hypertension Hyperlipidemia - Past Surgical History Other Surgical History: Left mastectomy [place] teeth surgery - Family History Other Family History: Unable to obtain, patient does not know - Social History Smoking Status: Unknown if ever smoked Alcohol: reports: None Occupation: Patient states she is retired - Exam General Appearance: NAD, awake alert Eye: PERRL, anicteric sclera ENT: normocephalic atraumatic, no oropharyngeal lesions Neck: no JVD Heart: RRR, no murmur, no gallops, no rubs Respiratory: CTAB, no wheezes, no rales, no ronchi Gastrointestinal: soft, non-tender, non-distended, normal bowel sounds Extremities: no cyanosis, no clubbing, no edema Skin: normal turgor, no lesions, no rashes Neurological: cranial nerve grossly intact, normal sensation to touch, no focal deficits, no new deficit Musculoskeletal: normal tone, normal strength, no muscle wasting Hospitalist Results - Labs Result Diagrams: 07/16/19 08:21 07/16/19 08:21 Lab results: WBC 6.2 thou/uL (4.8-10.8) 07/16/19 08:21 Hgb 9.9 g/dL (12.0-16.0) L 07/16/19 08:21 Hct 31.4 % (36.0-47.0) L 07/16/19 08:21 MCV 87.9 fL (78.0-98.0) 07/16/19 08:21 Plt Count 213 thou/uL (130-400) 07/16/19 08:21 Band Neuts % (Manual) 37 % (5-11) H 07/16/19 08:21 Sodium 141 mmol/L (136-145) 07/16/19 08:21 Potassium 4.2 mmol/L (3.5-5.1) 07/16/19 08:21 Chloride 102 mmol/L (98-107) 07/16/19 08:21 Carbon Dioxide 29 mmol/L (23-31) 07/16/19 08:21 BUN 8 mg/dL (9.8-20.1) L 07/16/19 08:21 Creatinine 0.45 mg/dL (0.6-1.1) L 07/16/19 08:21 Glucose 51 mg/dL (80-115) L* 07/16/19 08:21 Lactic Acid 2.1 mmol/L (0.5-2.2) 07/16/19 12:50 Calcium 8.5 mg/dL (7.8-10.44) 07/16/19 08:21 Total Bilirubin 0.3 mg/dL (0.2-1.2) 07/16/19 08:21 AST 77 U/L (5-34) H 07/16/19 08:21 ALT 13 U/L (8-55) 07/16/19 08:21 Alkaline Phosphatase 347 U/L (40-110) H 07/16/19 08:21 Troponin I 0.019 ng/mL (< 0.028) 07/16/19 08:21 B-Natriuretic Peptide 210.5 pg/mL (0-100) H 07/16/19 08:21 Serum Total Protein 6.2 g/dL (6.0-8.3) 07/16/19 08:21 Albumin 3.7 g/dL (3.4-4.8) 07/16/19 08:21 Urine Ketones Negative mg/dL (Negative) 07/16/19 10:37 Urine Blood Negative (Negative) 07/16/19 10:37 Urine Nitrite Negative (Negative) 07/16/19 10:37 Ur Leukocyte Esterase Negative Dior/uL (Negative) 07/16/19 10:37 - EKG Interpretation EKG: sinus tachycardia Hospitalist H&P A/P - Plan Plan: CTA thorax: extensive multifocal sclerotic and lytic change involving the regional osseous structures. Moderate right pleural fluid. Multifocal consolidation involving the right lower lobe. Consolidation also seen involving the peribronchial aspects of hte left lower lobe. This is a 64 year old female with past medical history of metastatic breast cancer presenting with worsening shortness of breath, found to have bilateral pneumonia #Acute hypoxic respiratory failure secondary to possible sepsis from bilateral pneumonia #Lactic acidosis - has bandemia, tachycardia and lactic acidosis - CTA negative for PE but has bilateral pneumonia - respiratory viral panel negative - will send for COVID 19 - continue IV fluids - pending blood cultures Metastatic breast cancer to bone, liver and lung - noted to have metastases to bones on CT scan - obtain oncology records - supportive care Acute encephalopathy - unclear etiology - will hydrate with IV fluids and continue with antibiotics - UA negative - no focal deficits at this time Anemia - likely from cancer - will monitor DVT prophylaxis: lovenox Code status: assume full code, patient with poor capacity right now
[2019-07-16] MEDS ORDERED: Sodium Chloride 0.9% 1,000 ML IV SCH (18:15)
[2019-07-16] MEDS ORDERED: Dextrose 50% Abboject 50 ML SYRINGE ONE (18:26)
[2019-07-16] MEDS: Dextrose 5 % And 0.9 % NaCl 1,000 ML IV SCH (21:53)
--- NOTE | 2019-07-16 23:22 | CT ---
CT BRAIN NONCONTRAST: DATE: 07/16/2019 10:51 PM HISTORY: 64-year-old female with metastatic breast cancer (malignant neoplasm of the upper outer quadrant of t he left female breast) presents with altered mental status: Confusion COMPARISON: none FINDINGS: There are multiple permeative osseous lesions and numerous osteoblastic lesions, scattered in the wilmer varium and there is locations. There is a 2 cm osteolytic lesion at the right posterior paramedian parietal bone containing a central osseous fragment within it. No displaced traumatic calvarial fract ure. In the subcortical white matter of a left upper cerebral gyrus, probably the precentral gyrus, there is a small strip of low attenuation. This could represent vasogenic edema. There are several scattered tiny intra-axial round hyperdensities at various locations, including rig ht upper frontal deep cerebral white matter, left caudate tail, and left posterior parietal cortex. These are nonspecific, but could represent tiny brain metastases. There is a 1 cm partially calcified nodule in the left posterior cerebrum, near the junction between the parietal lobe and occipital lobe. This could be a metastatic focus. It is surrounded by a small amount of vasogenic edema. Small lesion at left lateral frontal cortex. Tiny focal hypodensity at genu of right internal capsule. Incidentally, there is a large 2 x 1.7 cm extra-axial ossification at the interhemispheric falx. Ventricles are normal in size and configuration. No major intra-axial hematoma or extra-axial fluid c ollection. No mass effect or midline shift. IMPRESSION: 1) multiple tiny brain parenchymal density is of the cerebrum, suspicious for brain metastases. 2) very extensive osseous metastatic involvement of the calvarium. 3) small focus of what is suspected to represent vasogenic edema in the left precentral gyrus (sugges ting the presence of a metastatic lesion in that location). 4) no mass effect or major intracranial hemorrhage. 5) Recommend MRI of the brain with and without contrast for definitive evaluation.
[2019-07-17] MEDS: Zolpidem Tartrate 5 MG TAB PO PRN ×2 (01:48→21:19)
[2019-07-17 05:09] LABS: Iron 31 ug/dL (50-170); Iron Binding Capacity, Total 166 mcg/dL (265-497)
[2019-07-17] MEDS: HYDROcodone/Acetaminophen 10/325 mg Tablet PO PRN ×2 (05:27→16:08)
[2019-07-17] MEDS ORDERED: cefTRIAXone\\ROCEPHIN 1 GM in Sodium Chloride 0.9% 100 ML IVPB SCH (07:00)
[2019-07-17 08:21] LABS: ALT (SGPT) 10 U/L (8-55); AST (SGOT) 56 U/L (5-34); Alkaline Phosphatase 305 U/L (40-110); Anion Gap 12 mmol/L (10-20); BUN (Urea Nitrogen) 6 mg/dL (9.8-20.1); Bilirubin, Total 0.4 mg/dL (0.2-1.2); Calc. Creatinine Clearance 123 mL/min (70-130); Calcium 7.8 mg/dL (7.8-10.44); Carbon Dioxide 27 mmol/L (23-31); Chloride 104 mmol/L (98-107); Estimated GFR-MDRD Greater than 90; Globulin 2.1 g/dL (2.4-3.5); Glucose 80 mg/dL (80-115); Potassium 3.7 mmol/L (3.5-5.1); Protein, Total 5.1 g/dL (6.0-8.3); Sodium 139 mmol/L (136-145)
[2019-07-17] MEDS ORDERED: Prevnar 13-Val Conj/PF 0.5 ML SYRINGE IM ONE (09:00)
[2019-07-17] MEDS: cefTRIAXone\\ROCEPHIN 1 GM in Sodium Chloride 0.9% 100 ML IVPB SCH (09:43)
[2019-07-17] MEDS: Dexamethasone 4 MG TAB PO SCH (09:44)
[2019-07-17] MEDS: Azithromycin 250 MG TAB PO SCH (09:44)
[2019-07-17] MEDS: Fluticasone Propionate Nasal Spray 16 gm Bottle NASAL SCH (09:45)
[2019-07-17] MEDS: Enoxaparin Sodium 40 MG/0.4 ML SYRINGE SC SCH (09:52)
[2019-07-17] MEDS ORDERED: ALPRAZolam 0.25 MG TAB PO SCH (13:00)
[2019-07-17] MEDS: Dextrose 5 % And 0.9 % NaCl 1,000 ML IV SCH ×2 (13:26→21:18)
--- NOTE | 2019-07-17 15:28 | PDOC.HOSPP ---
- Subjective Encounter Date: 07/17/19 Encounter Time: 14:30 Subjective: The patient states she is feeling better. Her cough and SOB have improved some. She was told by oncology that she has a poor prognosis and is dying. She states she wants to be home with her family once her test results come back. The patient states she was not on oxygen at home, but would like to be on it on discharge - Objective Vital Signs & Weight: Vital Signs (12 hours) Temp Pulse Resp BP Pulse Ox 07/17/19 11:52 97.8 F 113 H 24 H 134/78 97 07/17/19 09:53 99 07/17/19 09:40 97.3 F L 108 H 20 131/74 99 07/17/19 04:42 98.8 F 110 H 20 119/72 97 Weight Weight 123 lb 14.4 oz I&O: 07/16/19 07/17/19 07/18/19 06:59 06:59 06:59 Intake Total 350 540 Output Total 400 900 Balance -50 -360 Result Diagrams: 07/16/19 08:21 07/17/19 04:21 Additional Labs: Accuchecks 07/17/19 07/17/19 07/17/19 11:49 08:59 04:48 POC Glucose 178 H 84 78 07/17/19 07/16/19 07/16/19 01:27 21:55 18:29 POC Glucose 145 H 138 H 35 L* Hospitalist ROS - Review of Systems Constitutional: denies: fever, chills - Medication Medications: Active Medications Generic Name Dose Route Start Last Admin Trade Name Freq PRN Reason Stop Dose Admin Hydrocodone Bitart/Acetaminophen 1 tab 07/16/19 18:07 07/17/19 05:27 [place] 10/325 PO 1 tab Q8H PRN Administration Mild-Moderate Pain (1-5) Azithromycin 250 mg 07/17/19 09:00 07/17/19 09:44 Zithromax PO 250 mg DAILY JONATHAN Administration Dexamethasone 4 mg 07/17/19 09:00 07/17/19 09:44 Decadron PO 4 mg QAM JONATHAN Administration Enoxaparin Sodium 40 mg 07/17/19 09:00 07/17/19 09:52 Lovenox SC 40 mg 0900 JONATHAN Administration Fluticasone Propionate 0 gm 07/17/19 09:00 07/17/19 09:45 Flonase Nasal [place] NASAL 2 spr DAILY JONATHAN Administration Dextrose/Sodium Chloride 1,000 mls @ 75 mls/hr 07/16/19 20:15 07/17/19 13:26 D5 0.9% Ns IV 1,000 mls .[id number] JONATHAN Administration Ceftriaxone Sodium 1 gm/ 100 mls @ 200 mls/hr 07/17/19 08:00 07/17/19 09:43 Sodium Chloride IVPB 100 mls Q24HR JONATHAN Administration Sodium Chloride 10 ml 07/16/19 21:00 07/17/19 09:45 Flush - Normal Saline IVF Not Given Q12HR JONATHAN Zolpidem Tartrate 5 mg 07/17/19 01:39 07/17/19 01:48 Ambien PO 5 mg HSPRN PRN Administration Insomnia - Exam General Appearance: NAD, awake alert Eye: PERRL, anicteric sclera ENT: normocephalic atraumatic, no oropharyngeal lesions Neck: no JVD Heart: RRR, no murmur, no gallops, no rubs Respiratory - other findings: crackles at bases Gastrointestinal: soft, non-tender, non-distended, normal bowel sounds Extremities: no cyanosis, no clubbing, no edema Hosp A/P - Plan CTA thorax: extensive multifocal sclerotic and lytic change involving the regional osseous structures. Moderate right pleural fluid. Multifocal consolidation involving the right lower lobe. Consolidation also seen involving the peribronchial aspects of the left lower lobe. CT brain: multiple tiny brain parenchymal density of cerebrum suspicious for brain metastases, very extensive osseous metastatic involvement of the calvarium. Vasogenic edema in the left precentral gyrus. This is a 64 year old female with past medical history of metastatic breast cancer presenting with worsening shortness of breath, found to have bilateral pneumonia #Acute hypoxic respiratory failure secondary to possible sepsis from bilateral pneumonia #Lactic acidosis - has bandemia, tachycardia and lactic acidosis. CTA negative for PE but has bilateral pneumonia - respiratory viral panel negative, COVID 19 pending -continue Iv ceftriaxone and azithromycin - wean oxygen saturation to 92% #Metastatic breast cancer to bone, liver and lung and brain #Vasogenic edema - noted to have metastases to bones on CT scan - oncology consulted, stated that patient has poor prognosis. Palliative consult placed - continue dexamethasone for vasogenic edema - MRI Brain with and without contrast after COVID test results can be done Acute encephalopathy secondary to hypoglycemia- resolved - blood sugar 35 on admission. On D5NS - insulin levels low, C peptide level pending - UA negative Transaminitis - likely from hepatic metastases - downtrending, no abdominal pain will monitor Anemia - likely from cancer - will monitor DVT prophylaxis: lovenox
--- NOTE | 2019-07-17 16:43 | PDOC.PALCO ---
Palliative Care Consult - Consult Details Requesting Physician: Dr Cox Reason for Consult: goals of care, advance directives assistance, complex decision-making - Allergies Allergies/Adverse Reactions: Allergies Allergy/AdvReac Type Severity Reaction Status Date / Time No Known Drug Allergies Allergy Verified 07/16/19 12:01 - Objective Vital Signs: Vital Signs - Most Recent Temp Pulse Resp BP Pulse Ox 98.4 F 110 H 20 141/78 H 95 07/17/19 15:48 07/17/19 15:48 07/17/19 15:48 07/17/19 15:48 07/17/19 15:48 - Problem List (1) Palliative care encounter Code(s): Z51.5 - ENCOUNTER FOR PALLIATIVE CARE Current Visit: Yes Status: Acute (2) Metastatic breast cancer Code(s): C50.919 - MALIGNANT NEOPLASM OF UNSP SITE OF UNSPECIFIED FEMALE BREAST Current Visit: Yes Status: Acute (3) Anemia Code(s): D64.9 - ANEMIA, UNSPECIFIED Current Visit: Yes Status: Acute (4) Sepsis with acute hypoxic respiratory failure Code(s): A41.9 - SEPSIS, UNSPECIFIED ORGANISM; R65.20 - SEVERE SEPSIS WITHOUT SEPTIC SHOCK; J96.01 - ACUTE RESPIRATORY FAILURE WITH HYPOXIA Current Visit: Yes Status: Acute - Plan/Recommendations Plan: Met with patient and discussed Goal of Care. She is desiring to transition home with hospice and be with her family. She has twin grandsons that will be born in August. Her Granddaughter is ALEX. Emotional support and theraputic listening. Hospice consult placed. Communicated with patient granddaughter at patient request. Communicated with Dr Cox [[id number]] minutes spent on this encounter with >50% of the time in counseling and coordination of care. Thank you for this very appropriate consult.
--- NOTE | 2019-07-17 17:00 | CON ---
DATE OF CONSULTATION: REASON FOR CONSULTATION: Metastatic breast cancer. HISTORY OF PRESENT ILLNESS: Ms. Matson is a pleasant 64-year-old female, who has metastatic breast cancer. She had a malignant pleural effusion with lung metastasis. She had extensive bone mets including a T9 compression fracture. She is followed by Pain Management and has a pain pump in place. Over the last several weeks, she has declined with worsening hip pain, poor nutrition, fatigue, and hypoglycemia. She was switched to [place] chemotherapy in early June. She presented to our clinic on July 12 for cycle two. She had a recent fall. Her blood sugar that morning was 39. Her friend states that her speech was slurred in the morning. She tolerated treatment well. Over the next several days, she began to have worsening confusion and increased shortness of breath. She presented to the emergency room on July 15. She was found to be hypoxic with her O2 saturation 90% on room air. She underwent a brain CT, which showed multiple tiny brain parenchymal densities in the cerebrum, suspicious for brain mets. She had extensive bone involvement of the calvaria. There was possibly some vasogenic edema in the left precentral gyrus. MRI was suggested, however, the patient has been tested for COVID-19 and is currently on isolation, so MRI has not been done yet. The patient has continued to have difficulty with hypoglycemia in the hospital. We were asked to see the patient regarding her progressive disease. PAST MEDICAL HISTORY: 1. Metastatic breast cancer with malignant pleural effusion, lung mets, bone mets. 2. Chronic pain secondary to bone mets. PAST SURGICAL HISTORY: 1. Left femoral neck fracture repair. 2. Left mastectomy. 3. Tubal ligation. ALLERGIES: NO KNOWN DRUG ALLERGIES. HOME MEDICATIONS: 1. Aspirin. 2. Atorvastatin. 3. B12. 4. Gabapentin. 5. Hydrochlorothiazide. 6. Lasix. 7. Lisinopril. 8. Methocarbamol. 9. Metoprolol. 10. Morphine continuous infusion. 11. [place]. 12. Senokot. 13. Ambien. FAMILY HISTORY: Noncontributory. SOCIAL HISTORY: , lives with her spouse. Granddaughter is power of insurance defense attorney. No alcohol, tobacco, or illicit drug use. REVIEW OF SYSTEMS: Positive for fatigue, shortness of breath, and confusion. PHYSICAL EXAMINATION: The patient is confused. PERTINENT LABS AND X-RAYS: Current WBCs are 6.2, hemoglobin 9.9, hematocrit 31.4, platelet count 213,000. She has 41% neutrophils and 37% lymphocytes. Sodium 139, potassium 3.7, chloride 104, CO2 is 27, BUN is 6, creatinine 0.40, calcium 7.8, bilirubin 0.4, AST is 56, ALT is 10, alkaline phosphatase is 305, serum total protein 5.1, albumin 3.0, globulin 2.1. RADIOLOGY: Per HPI. ASSESSMENT: 1. Metastatic breast cancer. 2. Brain lesions, consistent with metastatic disease. 3. Acute encephalopathy secondary to hypoglycemia and brain lesions. 4. Persistent hypoglycemia. DISCUSSION: Case discussed with Dr. Saucedo. The patient has recently progressed and started on a new regimen in June. It appears now that she has metastatic brain lesions. MRI could confirm this. However, she is on isolation secondary to COVID. She has declined progressively over the last several weeks. Recommend Hospice and focusing on comfort and quality of life. Dr. Saucedo will reach out to her power of insurance defense attorney to discuss this further. Thank you for the consult. Job ID: [id number]
[2019-07-18] MEDS: HYDROcodone/Acetaminophen 10/325 mg Tablet PO PRN ×3 (00:01→17:36)
[2019-07-18] MEDS: Dextrose 5 %-0.45 % NaCl 1,000 ML IV SCH (05:50)
[2019-07-18] MEDS: ALPRAZolam 0.25 MG TAB PO PRN ×2 (09:12→21:02)
[2019-07-18] MEDS: Dexamethasone 4 MG TAB PO SCH (09:12)
[2019-07-18] MEDS: Enoxaparin Sodium 40 MG/0.4 ML SYRINGE SC SCH (09:12)
[2019-07-18] MEDS: Azithromycin 250 MG TAB PO SCH (09:13)
[2019-07-18] MEDS: cefTRIAXone\\ROCEPHIN 1 GM in Sodium Chloride 0.9% 100 ML IVPB SCH (09:14)
[2019-07-18] MEDS: Fluticasone Propionate Nasal Spray 16 gm Bottle NASAL SCH (09:14)
[2019-07-18] MEDS ORDERED: Furosemide 40 MG/4 ML VIAL SLOW IVP SCH (11:00)
--- NOTE | 2019-07-18 19:11 | PDOC.HOSPP ---
- Subjective Encounter Date: 07/18/19 Encounter Time: 19:10 Subjective: Followup re: shortness of breath. Feels better after getting furosemide. - Objective Vital Signs & Weight: Vital Signs (12 hours) Temp Pulse Resp BP BP Pulse Ox 07/18/19 15:30 97.1 F L 116 H 20 157/84 H 98 07/18/19 11:07 98.6 F 105 H 20 135/76 97 07/18/19 09:05 98.5 F 97 20 140/78 94 L Weight Weight 129 lb 3.2 oz I&O: 07/17/19 07/18/19 07/19/19 06:59 06:59 06:59 Intake Total 350 3309 1720 Output Total 400 2150 3750 Balance -50 9963 -3405 Result Diagrams: 07/16/19 08:21 07/17/19 04:21 Additional Labs: Accuchecks 07/18/19 07/18/19 07/18/19 15:31 11:13 05:15 POC Glucose 174 H 136 H 93 07/17/19 20:14 POC Glucose 167 H Labs and MARs reviewed by me EKG Reviewed by me: Yes (Tele: NST, MARILUZ) Hospitalist ROS - Review of Systems Respiratory: reports: SOB with excertion. denies: cough, dry, shortness of breath, hemoptysis, pleuritic pain, sputum, wheezing Cardiovascular: denies: chest pain, palpitations, orthopnea, paroxysmal noc. dyspnea, edema, light headedness - Medication Medications: Active Medications Generic Name Dose Route Start Last Admin Trade Name Freq PRN Reason Stop Dose Admin Hydrocodone Bitart/Acetaminophen 1 tab 07/16/19 18:07 07/18/19 17:36 [place] 10/325 PO 1 tab Q8H PRN Administration Mild-Moderate Pain (1-5) Alprazolam 0.25 mg 07/17/19 20:07 07/18/19 09:12 Xanax PO 0.25 mg TIDPRN PRN Administration Anxiety Azithromycin 250 mg 07/17/19 09:00 07/18/19 09:13 Zithromax PO 250 mg DAILY JONATHAN Administration Dexamethasone 4 mg 07/17/19 09:00 07/18/19 09:12 Decadron PO 4 mg QAM JONATHAN Administration Enoxaparin Sodium 40 mg 07/17/19 09:00 07/18/19 09:12 Lovenox SC 40 mg 0900 JONATHAN Administration Fluticasone Propionate 0 gm 07/17/19 09:00 07/18/19 09:14 Flonase Nasal [place] NASAL 2 spr DAILY JONATHAN Administration Ceftriaxone Sodium 1 gm/ 100 mls @ 200 mls/hr 07/17/19 08:00 07/18/19 09:14 Sodium Chloride IVPB 100 mls Q24HR JONATHAN Administration Dextrose/Sodium Chloride 1,000 mls @ 40 mls/hr 07/18/19 05:45 07/18/19 05:50 D5 1/2 Ns IV 1,000 mls .Q24H JONATHAN Administration Sodium Chloride 10 ml 07/16/19 21:00 07/18/19 09:21 Flush - Normal Saline IVF 10 ml Q12HR JONATHAN Administration Zolpidem Tartrate 5 mg 07/17/19 01:39 07/17/19 21:19 Ambien PO 5 mg HSPRN PRN Administration Insomnia - Exam General Appearance: awake alert Respiratory - other findings: Bibasal cfrackles Skin: no lesions Psychiatric: normal affect, normal behavior, A&O x 3 Hosp A/P - Plan Hosp A/P -Assessment/ Plan #shortness of breath -most likely secondary to pneumonia and volume overload. -Improved with IV furosemid-check AM labs #Acute hypoxic respiratory failure secondary to possible sepsis from bilateral pneumonia -has bilateral pneumonia - COVID 19 pending -continue Iv ceftriaxone and azithromycin - wean oxygen saturation to 92% #Metastatic breast cancer to bone, liver and lung and brain #Vasogenic edema - continue dexamethasone for vasogenic edema - Pt likely for home hospice once Covid 19 result available Acute encephalopathy secondary to hypoglycemia- resolved Transaminitis - likely from hepatic metastases Anemia - likely from cancer DVT prophylaxis: lovenox
[2019-07-18] MEDS ORDERED: OXYCODONE HCL IJ PRN (21:46)
[2019-07-18] MEDS ORDERED: Senokot S 8.6-50 MG TAB PO PRN (21:46)
[2019-07-18] MEDS ORDERED: Furosemide 20 MG TAB PO PRN (21:46)
[2019-07-18] MEDS: Zolpidem Tartrate 5 MG TAB PO PRN (22:31)
[2019-07-19 04:36] LABS: #Lymphocytes 0.4 thou/uL (1.20-3.40); #Monocytes 0.2 thou/uL (0.11-0.59); #Neutrophils 5.1 thou/uL (1.40-6.50); %Lymphocytes 7.5 % (21.0-51.0); %Monocytes 2.8 % (0.0-10.0); %Neutrophils 89.8 % (42.0-75.0); Hemoglobin 8.2 g/dL (12.0-16.0); Mean Corpuscular HGB CONC 31.6 g/dL (32.0-36.0); Mean Corpuscular Hemoglobin 27.8 pg (27.0-31.0); Mean Corpuscular Volume 87.9 fL (78.0-98.0); Mean Platelet Volume 8.8 fL (7.4-10.4); Platelet Count 169 thou/uL (130-400); RBC Distribution Width 18.5 % (11.5-14.5); Red Blood Cell (RBC) Count 2.95 mill/uL (4.20-5.40); White Blood Cell (WBC) Count 5.7 thou/uL (4.8-10.8)
[2019-07-19 04:57] LABS: Anion Gap 10 mmol/L (10-20); BUN (Urea Nitrogen) 7 mg/dL (9.8-20.1); Calc. Creatinine Clearance 123 mL/min (70-130); Carbon Dioxide 34 mmol/L (23-31); Chloride 100 mmol/L (98-107); Estimated GFR-MDRD Greater than 90; Glucose 111 mg/dL (80-115); Potassium 3.9 mmol/L (3.5-5.1); Sodium 140 mmol/L (136-145)
[2019-07-19] MEDS: Fioricet 325/50/40 mg Tablet PO PRN (06:19)
[2019-07-19] MEDS: Dextrose 5 %-0.45 % NaCl 1,000 ML IV SCH (07:44)
[2019-07-19] MEDS: cefTRIAXone\\ROCEPHIN 1 GM in Sodium Chloride 0.9% 100 ML IVPB SCH (09:06)
[2019-07-19] MEDS: Fluticasone Propionate Nasal Spray 16 gm Bottle NASAL SCH (09:10)
[2019-07-19] MEDS: Dexamethasone 4 MG TAB PO SCH (09:11)
[2019-07-19] MEDS: HYDROcodone/Acetaminophen 10/325 mg Tablet PO PRN ×2 (09:11→16:17)
[2019-07-19] MEDS: Azithromycin 250 MG TAB PO SCH (09:11)
[2019-07-19] MEDS: Enoxaparin Sodium 40 MG/0.4 ML SYRINGE SC SCH (09:12)
--- NOTE | 2019-07-19 15:10 | PDOC.HOSPP ---
- Subjective Encounter Date: 07/19/19 Encounter Time: 13:40 Subjective: Patient seen and examined for Sepsis. Feels gen weak. Mild cough. No fever or chills. No new complaints. No overnight events - Objective Vital Signs & Weight: Vital Signs (12 hours) Temp Pulse Resp BP Pulse Ox 07/19/19 11:45 97.2 F L 108 H 24 H 152/84 H 97 07/19/19 07:51 96 07/19/19 07:50 97.1 F L 102 H 20 146/76 H 96 07/19/19 03:28 97.5 F L 106 H 25 H 157/93 H 96 Weight Weight 127 lb 11.2 oz I&O: 07/18/19 07/19/19 07/20/19 06:59 06:59 06:59 Intake Total 3309 2148 774 Output Total 2150 4400 500 Balance 1159 -4242 274 Result Diagrams: 07/19/19 04:08 07/19/19 04:08 Additional Labs: Accuchecks 07/19/19 07/18/19 07/18/19 11:28 21:06 15:31 POC Glucose 122 H 139 H 174 H 07/18/19 11:13 POC Glucose 136 H EKG Reviewed by me: Yes (Tele SR) Hospitalist ROS - Review of Systems Cardiovascular: denies: chest pain, palpitations, orthopnea, paroxysmal noc. dyspnea, edema, light headedness, other Gastrointestinal: denies: nausea, vomiting, abdominal pain, diarrhea, constipation, melena, hematochezia, other - Medication Medications: Active Medications Generic Name Dose Route Start Last Admin Trade Name Freq PRN Reason Stop Dose Admin Acetaminophen/Butalbital/Caffeine 1 tab 07/18/19 21:46 07/19/19 06:19 Fioricet PO 07/23/19 21:47 1 tab BID PRN Administration Pain/headache Hydrocodone Bitart/Acetaminophen 1 tab 07/16/19 18:07 07/19/19 09:11 [place] 10/325 PO 1 tab Q8H PRN Administration Mild-Moderate Pain (1-5) Alprazolam 0.25 mg 07/17/19 20:07 07/18/19 21:02 Xanax PO 0.25 mg TIDPRN PRN Administration Anxiety Azithromycin 250 mg 07/17/19 09:00 07/19/19 09:11 Zithromax PO 250 mg DAILY JONATHAN Administration Dexamethasone 4 mg 07/17/19 09:00 07/19/19 09:11 Decadron PO 4 mg QAM JONATHAN Administration Enoxaparin Sodium 40 mg 07/17/19 09:00 07/19/19 09:12 Lovenox SC 40 mg 0900 JONATHAN Administration Fluticasone Propionate 0 gm 07/17/19 09:00 07/19/19 09:10 Flonase Nasal [place] NASAL 1 spr DAILY JONATHAN Administration Ceftriaxone Sodium 1 gm/ 100 mls @ 200 mls/hr 07/17/19 08:00 07/19/19 09:06 Sodium Chloride IVPB 100 mls Q24HR JONATHAN Administration Dextrose/Sodium Chloride 1,000 mls @ 40 mls/hr 07/18/19 05:45 07/19/19 07:44 D5 1/2 Ns IV 1,000 mls .Q24H JONATHAN Administration Sodium Chloride 10 ml 07/16/19 21:00 07/19/19 09:11 Flush - Normal Saline IVF Not Given Q12HR JONATHAN Sodium Chloride 10 ml 07/16/19 18:24 07/18/19 22:32 Flush - Normal Saline IVF 10 ml PRN PRN Administration Saline Flush Zolpidem Tartrate 5 mg 07/17/19 01:39 07/18/19 22:31 Ambien PO 5 mg HSPRN PRN Administration Insomnia - Exam General Appearance: NAD Neck: supple, no JVD Heart: RRR, no gallops Respiratory: no wheezes, rales, rhonchi Gastrointestinal: non-tender, non-distended, normal bowel sounds Extremities: no cyanosis Neurological: no new deficit Psychiatric: normal affect, A&O x 3 Hosp A/P - Plan DVT proph w/SCDs Gen weakness Acute hypoxic resp failure due to B/L Pneumonia r/o COVID 19 Metabolic Encephalopathy due to hypoglycemia Lactic acidosis Metastatic breast CA Rt sided Pleural effusion - prob due to malignancy Anemia due to chronic disease Chronic pain syndrome PLAN: Await Covid Cont Empiric Atbx Oncology input appreciated Monitor sugar Cont to monitor
[2019-07-19] MEDS: Zolpidem Tartrate 5 MG TAB PO SCH (20:43)
[2019-07-19] MEDS: Gabapentin 300 MG CAP PO SCH (20:44)
[2019-07-19] MEDS: ALPRAZolam 0.25 MG TAB PO PRN (20:44)
[2019-07-20] MEDS: HYDROcodone/Acetaminophen 10/325 mg Tablet PO PRN ×4 (00:07→19:30)
[2019-07-20] MEDS: Fioricet 325/50/40 mg Tablet PO PRN (07:26)
--- NOTE | 2019-07-20 09:24 | RAD ---
Right shoulder 3 views HISTORY: Fall. Right shoulder injury. FINDINGS: Acromioclavicular and glenohumeral alignment are maintained. No acute fracture or dislocati on evident. Sclerotic lesions of the right upper ribs and proximal humerus consistent with known metastatic disea se. IMPRESSION : Osseous metastatic disease correlating with recent cross-sectional imaging. No acute osseous abnormalities are demonstrated.
--- NOTE | 2019-07-20 09:32 | RAD ---
TWO VIEWS OF THE CHEST: COMPARISON: 07/16/2019 and CTA chest 07/16/2019. HISTORY: Shortness of breath and pneumonia. FINDINGS: Two views of the chest show an enlarged but stable cardiomediastinal silhouette. The MediPort is unc hanged in position. Increased interstitial lung markings are present. There is left lateral pleural thickening. A small left pleural effusion is likely present. There is a sclerotic region in the inferior aspect of the left scapula. No other obvious bony lesion s are identified. IMPRESSION: 1. Left pleural effusion with adjacent pleural thickening and atelectasis. 2. A sclerotic lesion of the scapula likely represents a bony metastatic lesion. The other bony met astasis seen on prior CT are difficult to visualize on this chest radiograph. POS: C
[2019-07-20] MEDS: Senokot S 8.6-50 MG TAB PO SCH ×2 (09:41→19:30)
[2019-07-20] MEDS: Enoxaparin Sodium 40 MG/0.4 ML SYRINGE SC SCH (09:41)
[2019-07-20] MEDS: Azithromycin 250 MG TAB PO SCH (09:41)
[2019-07-20] MEDS: Dexamethasone 4 MG TAB PO SCH (09:41)
[2019-07-20] MEDS: Fluticasone Propionate Nasal Spray 16 gm Bottle NASAL SCH (09:42)
[2019-07-20] MEDS: cefTRIAXone\\ROCEPHIN 1 GM in Sodium Chloride 0.9% 100 ML IVPB SCH (09:43)
[2019-07-20] MEDS: Dextrose 5 %-0.45 % NaCl 1,000 ML IV SCH (09:53)
--- NOTE | 2019-07-20 14:28 | PDOC.MOPN ---
Interval History: complains of right shoulder pain - Vital Signs Vital Signs: Vital Signs (12 hours) Temp Pulse Resp BP Pulse Ox 07/20/19 11:30 97.4 F L 111 H 20 127/72 99 07/20/19 10:13 97.1 F L 107 H 18 128/77 98 07/20/19 04:00 97.7 F 105 H 20 138/63 98 Weight Weight 127 lb 11.2 oz - Physical Exam General: Alert HEENT: Atraumatic, PERRLA, EOMI, Mucous membr. moist/pink Cardiovascular: Regular rate Extremities: No clubbing, No cyanosis, No edema, Normal pulses, No tenderness/ swelling Skin: No rashes, No breakdown, No significant lesion Neurological: Normal speech - Labs Result Diagrams: 07/19/19 04:08 07/19/19 04:08 Lab results: Laboratory Results - last 24 hr 07/20/19 10:30: POC Glucose 144 H 07/20/19 05:05: POC Glucose 97 07/19/19 16:24: POC Glucose 141 H 07/16/19 15:45: COVID-19 PCR Not Detected Status: lab reviewed by me A/P - Problem (1) Metastatic breast cancer Current Visit: Yes Code(s): C50.919 - MALIGNANT NEOPLASM OF UNSP SITE OF UNSPECIFIED FEMALE BREAST Status: Acute - Plan Plan: 1. new brain lesions 2. patient would like to focus on comfort and quality 3. HBV consulted, home when accepted 4. continue pain medications
--- NOTE | 2019-07-20 19:23 | PDOC.HOSPP ---
- Subjective Encounter Date: 07/20/19 Encounter Time: 15:30 Subjective: Patient seen and examined for resp failure. Rt shoulder pain. SOB improving. No other complaints. No overnight events - Objective Vital Signs & Weight: Vital Signs (12 hours) Temp Pulse Resp BP BP Pulse Ox 07/20/19 15:10 98.2 F 106 H 16 153/81 H 98 07/20/19 11:30 97.4 F L 111 H 20 127/72 99 07/20/19 10:13 97.1 F L 107 H 18 128/77 98 Weight Weight 127 lb 11.2 oz I&O: 07/19/19 07/20/19 07/21/19 06:59 06:59 06:59 Intake Total 2148 2274 600 Output Total 4400 2000 300 Balance -2252 274 300 Result Diagrams: 07/19/19 04:08 07/19/19 04:08 Additional Labs: Accuchecks 07/20/19 07/20/19 07/20/19 17:07 10:30 05:05 POC Glucose 174 H 144 H 97 Radiology Reviewed by me: Yes (CXR - reviewed) EKG Reviewed by me: Yes (Tele SR) Hospitalist ROS - Review of Systems Cardiovascular: denies: chest pain, palpitations, orthopnea, paroxysmal noc. dyspnea, edema, light headedness, other Gastrointestinal: denies: nausea, vomiting, abdominal pain, diarrhea, constipation, melena, hematochezia, other - Medication Medications: Active Medications Generic Name Dose Route Start Last Admin Trade Name Freq PRN Reason Stop Dose Admin Acetaminophen/Butalbital/Caffeine 1 tab 07/18/19 21:46 07/20/19 07:26 Fioricet PO 07/23/19 21:47 1 tab BID PRN Administration Pain/headache Hydrocodone Bitart/Acetaminophen 2 tab 07/16/19 18:24 07/20/19 14:38 [place] 10/325 PO 2 tab Q8H PRN Administration Moderate to Severe Pain (6-10) Alprazolam 0.25 mg 07/17/19 20:07 07/19/19 20:44 Xanax PO 0.25 mg TIDPRN PRN Administration Anxiety Dexamethasone 4 mg 07/17/19 09:00 07/20/19 09:41 Decadron PO 4 mg QAM JONATHAN Administration Enoxaparin Sodium 40 mg 07/17/19 09:00 07/20/19 09:41 Lovenox SC 40 mg 0900 JONATHAN Administration Fluticasone Propionate 0 gm 07/17/19 09:00 07/20/19 09:42 Flonase Nasal [place] NASAL 2 spr DAILY JONATHAN Administration Gabapentin 300 mg 07/19/19 21:00 07/19/19 20:44 Neurontin PO 300 mg QPM JONATHAN Administration Dextrose/Sodium Chloride 1,000 mls @ 40 mls/hr 07/18/19 05:45 07/20/19 09:53 D5 1/2 Ns IV 07/21/19 05:00 1,000 mls .Q24H JONATHAN Administration Senna/Docusate Sodium 2 tab 07/20/19 09:00 07/20/19 09:41 Senokot S PO 2 tab BID JONATHAN Administration Sodium Chloride 10 ml 07/16/19 21:00 07/20/19 09:44 Flush - Normal Saline IVF 10 ml Q12HR JONATHAN Administration Sodium Chloride 10 ml 07/16/19 18:24 07/18/19 22:32 Flush - Normal Saline IVF 10 ml PRN PRN Administration Saline Flush Zolpidem Tartrate 5 mg 07/17/19 01:39 07/18/19 22:31 Ambien PO 5 mg HSPRN PRN Administration Insomnia Zolpidem Tartrate 5 mg 07/19/19 21:00 07/19/19 20:43 Ambien PO 5 mg HS JONATHAN Administration - Exam General Appearance: NAD Heart: RRR, no gallops Respiratory: rales, rhonchi Gastrointestinal: soft, non-tender, normal bowel sounds Extremities: no cyanosis Hosp A/P - Plan DVT proph w/SCDs Gen weakness Acute hypoxic resp failure due to B/L Pneumonia Metabolic Encephalopathy due to hypoglycemia Lactic acidosis Metastatic breast CA Rt sided Pleural effusion - prob due to malignancy Anemia due to chronic disease Chronic pain syndrome PLAN: Covid 19 - negative Repeat CXR and shoulder XR - d/w patient and daughter Change Atbx to PO in AM DC IVF in AM Await Hospice setup Stable for dc
[2019-07-20] MEDS: Gabapentin 300 MG CAP PO SCH (19:30)
[2019-07-20] MEDS: Zolpidem Tartrate 5 MG TAB PO SCH (21:25)
[2019-07-21] MEDS: HYDROcodone/Acetaminophen 10/325 mg Tablet PO PRN ×3 (02:53→15:00)
[2019-07-21] MEDS: ALPRAZolam 0.25 MG TAB PO PRN (04:27)
[2019-07-21] MEDS ORDERED: cefTRIAXone\\ROCEPHIN 1 GM in Sodium Chloride 0.9% 100 ML IVPB SCH (09:00)
[2019-07-21] MEDS: Dexamethasone 4 MG TAB PO SCH (09:43)
[2019-07-21] MEDS: Enoxaparin Sodium 40 MG/0.4 ML SYRINGE SC SCH (09:43)
[2019-07-21] MEDS: Senokot S 8.6-50 MG TAB PO SCH (09:44)
[2019-07-21] MEDS: Fluticasone Propionate Nasal Spray 16 gm Bottle NASAL SCH (09:44)
[2019-07-21 15:56] VITALS: BP 129/82; TEMP 98
--- NOTE | 2019-07-21 19:32 | DIS ---
DATE OF ADMISSION: 07/16/2019 DATE OF DISCHARGE: 07/21/2019 DISCHARGE DISPOSITION: Home with hospice. FOLLOWUP: With Oncology, Dr. Saucedo as scheduled. CODE STATUS: Do not resuscitate. ALLERGIES: NO KNOWN DRUG ALLERGIES. DISCHARGE MEDICATIONS: Cardizem 30 mg 3 times a day, Levaquin 500 mg daily for next 3 days. All other home medications were left unchanged. The patient was seen and examined on the day of discharge. Denies any new complaints. No chest pain, shortness of breath, or palpitations reported. BRIEF HOSPITAL COURSE: The patient is a 64-year-old female with metastatic breast cancer, presented to the emergency room with shortness of breath along with altered mentation and cough. She was hypoxic in the emergency room and was started on O2 nasal cannula. Her CT scan of the chest was consistent with multifocal consolidation involving the right lower lobe. Please refer to the history and physical for further details. The patient was admitted to the hospital with a diagnosis of sepsis secondary to pneumonia. COVID-19 testing returned negative. Isolation was discontinued. She was found to have significant hypoglycemia with blood glucose of 35 that improved with IV hydration. Later on, her appetite improved and her blood sugar stabilized. Antibiotics have been switched to oral. The patient was evaluated by Oncology, Dr. Saucedo. The patient will be discharged home with hospice. FINAL DIAGNOSES: 1. Acute hypoxic respiratory failure secondary to bilateral pneumonia. 2. Sepsis secondary to pneumonia, suspected gram-negative. 3. Lactic acidosis. 4. Toxic metabolic encephalopathy, multifactorial. 5. Severe hypoglycemia secondary to sepsis/poor oral intake/confusion. 6. Metastatic breast cancer. 7. Chronic anemia secondary to renal insufficiency. 8. Generalized weakness, multifactorial. 9. Right-sided pleural effusion, probably secondary to malignancy. 10. Chronic pain syndrome. 11. Moderate protein calorie malnutrition. SIGNIFICANT LABORATORY DATA: Blood cultures were negative. Respiratory viral panel was negative. Insulin and C-peptide level was negative. Lactic acid 2.5. Job ID: [id number]
== END 2019-07-21 07:00 | disposition hospice, home (50) | DRG 871 ==
LOC: ERS 08:05 → 2SW 09:56
PROVIDERS: ADMIT Internal Medicine; ATTEND Internal Medicine
DX: A41.50 Gram-negative sepsis, unspecified (principal); J15.6 Pneumonia due to other Gram-negative bacteria; G92 Toxic encephalopathy; G93.6 Cerebral edema; Z51.5 Encounter for palliative care; Z66 Do not resuscitate; E87.2 Acidosis; J91.0 Malignant pleural effusion; E44.0 Moderate protein-calorie malnutrition; C78.00 Secondary malignant neoplasm of unspecified lung; C78.7 Secondary malignant neoplasm of liver and intrahepatic bile duct; C79.51 Secondary malignant neoplasm of bone; G89.4 Chronic pain syndrome; E78.5 Hyperlipidemia, unspecified; C50.912 Malignant neoplasm of unspecified site of left female breast; D63.8 Anemia in other chronic diseases classified elsewhere; E16.2 Hypoglycemia, unspecified; Z28.21 Immunization not carried out because of patient refusal; Z68.22 Body mass index [BMI] 22.0-22.9, adult; Z90.12 Acquired absence of left breast and nipple; Z79.899 Other long term (current) drug therapy; Z79.51 Long term (current) use of inhaled steroids
CPT/HCPCS: 36415; 36416; 70450; 71045; 71046; 71275; 80048; 80053; 81003; 82550; 82553; 83525; 83540; 83550; 83605; 83735; 83880; 84443; 84484; 84681; 85025; 87040; 87086; 87633; 87798; 90471; 90670; 93005; 94760; 96361; 96365; 96374; G0009; J0456; J0696; J1100; J1642; J1650; J1940; J3490; J8540; Q9967; U0001